=== PATIENT | female | born 1955 | race Caucasian/White ===

== ENCOUNTER → 2021-11-26 12:07 | Outpatient (CLI) | payer MEDICARE, SELFPAY ==
--- NOTE | ~2021-11-26 | MM_ITS ---
EXAMINATION: MM screening erica BI w dorita HISTORY: Screening TECHNIQUE: Craniocaudal and mediolateral oblique 3-D tomosynthesis images were obtained and synthetic 2-D images were generated. CAD analysis was submitted and interpreted. COMPARISON: Comparison to multiple prior studies sequentially, with oldest reviewed study dated 05/27. BREAST PARENCHYMAL COMPOSITION: Breast composed of scattered areas of fibroglandular density. FINDINGS: There is no evidence of suspicious mass, calcification, or architectural distortion to sugg est malignancy in either breast. There has been no suspicious interval change. IMPRESSION: 1. No mammographic evidence of malignancy. 2. Recommend routine screening mammography in one year. BI-RADS Category 1: Negative Reviewed, dictated and finalized at location A. RBOAT MASTER
--- NOTE | ~2021-11-26 | DEXA_ITS ---
Bone Density Report Name: GERTRUDE KAHN Age: 66 Sex: Female Ethnicity: White Date of : 1955 Indication: postmenopausal; screening for osteoporosis; hysterectomy; Referring Provider: QUE SANDERS Study: Bone densitometry was performed. Exam Date: November 26, 2021 Accession number: [id number] Bone Density: Region BMD T-score Z-score Classification AP Spine (L1-L4) 1.046 0.0 1.8 Normal Femoral Neck (Left) 0.701 -1.3 0.2 Osteopenia Total Hip (Left) 0.954 0.1 1.4 Normal Femoral Neck (Right) 0.745 -0.9 0.6 Normal Total Hip (Right) 0.954 0.1 1.4 Normal Total Hip Mean 0.954 0.1 1.4 Normal World Health Organization criteria for BMD impression classify patients as: Normal (T-score at or above -1.0), Osteopenia (T-score between -1.0 and -2.5), or Osteoporosis (T-score at or below -2.5). 10-year Fracture Risk(1): Major Osteoporotic Fracture 8.6% Hip Fracture 0.8% Reported Risk Factors: [place] (), Neck BMD=0.701, BMI=27.6 (1) FRAX(R) Version 3.08. Fracture probability calculated for an untreated patient. Fracture probability may be lower if the patient has received treatment. Clinical Information Provided by Patient: Has the following medical conditions: Hysterectomy Patient maximum height was 62.8 Menopause Age: 36 No regular weight bearing exercise Does not regularly consume dairy products Drinks caffeinated beverages Onset of menses at age 15 Number of children 0 Missed period for more than 6 months in a row Impression: The patient has low bone mass, based on the Left Femoral Neck T-score. The patient has an estimated ten-year risk of hip fracture of 0.8% and an estimated ten-year risk of major fracture of 8.6%, based on the WHO FRAX algorithm. Discussion: BONE DENSITY IS LOW AT ONE OR MORE SKELETAL SITES. This patient's lowest T-score is low at one or more skeletal sites. It meets the World Health Organization's (WHO) criteria for ?low bone mass? (T-score between -1.0 and -2.5). The patient's 10-year risk of fracture as calculated by FRAX is less than the threshold where pharmacological therapy is recommended by the National Osteoporosis Foundation (NOF). However, all treatment decisions require clinical judgment and consideration of individual patient factors, including patient preferences, comorbidities, previous drug use, risk factors not captured in the FRAX model (e.g., frailty, falls, vitamin D deficiency, increased bone turnover, interval significant decline in bone density) and possible under or overestimation of fracture risk by FRAX. The patient should follow a healthful lifestyle (good nutrition with adequate calcium and vitamin D, and appropriate weight-bearing exercise). Follow-Up: Consider repeating this study in 2 to 3 years to reassess this patient's status,
== END ==
PROVIDERS: PCP Family Medicine; Visit Provider Family Medicine
DX: Z12.31 Encounter for screening mammogram for malignant neoplasm of breast (principal); Z78.0 Asymptomatic menopausal state; M85.852 Other specified disorders of bone density and structure, left thigh
CPT/HCPCS: 77063; 77067; 77080

== ENCOUNTER 2022-02-25 00:29 | Day surgery (SDC) | payer MEDICARE, SELFPAY ==
[2022-02-14 10:01] VITALS: BMI 28.2
--- NOTE | 2022-02-24 12:54 | P.PNAN_ITS ---
Anes - Initial Pre Proc Eval Procedure: Operation Date: 02/25/22 12:30 Proposed Procedures p Screening Colonoscopy - Robby Martinez MD Date/Time: 02/24/22 12:54 Surgeon: Robby Martinez MD Pre Op Diagnosis: neoplasm screening Patient Data Age: 66 Gender: F Height: 1.57 m Weight: 70 kg Allergies Allergy/AdvReac Type Severity Reaction Status Date / Time No Known Allergies Allergy Verified 02/25/22 11:19 Home Medications Medication Instructions Recorded Confirmed Type omeprazole 20 mg capsule,delayed 20 mg PO DAILY 08/20/20 02/25/22 History release loratadine [Claritin] 10 mg PO DAILY PRN 02/14/22 02/25/22 History Patient hx anesthesia problems: none Family hx anesthesia problems: none Results Review: All pre-operative results and documents have been reviewed as p art of the pre-operative evaluation. [facility]LY [facility] Past Medical History Medical History (Updated 02/24/22 @ 12:54 by Johnny Dunn DO) GERD (gastroesophageal reflux disease) MVP (mitral valve prolapse) Rectal fistula (~2007) Repaired Squamous cell skin cancer, face (~2013) Surgical History Surgical History History of hysterectomy (~1990) Status post left foot surgery Removal of calcification Family History Family History Father Hypertension Family history of lung cancer Mother Family history of malignant neoplasm of breast in first degree relative Social History Social History Smoking status: Never smoker Second hand tobacco smoke exposure: No Alcohol intake: current Alcohol use details: Occasional Substance use: never Substance use type: does not use Living arrangements: alone Gender identity (if verbalized by the patient): Female Spiritual care concerns: No Anes - Eval Final PreProcedure Day of Procedure 02/24/22 12:54 Patient weight: overweight Heart: regular rate and rhythm Lungs: clear to auscultation and normal air movement Airway: Mallampati scale class II Neurological: alert and oriented Last oral intake: >/= 8 hours ASA classification: II Emergent: no Anesthetic plan: proceed Anesthesia type and monitoring: general GIVS and standard monitoring Results Review: All pre-operative results and documents have been reviewed as part of the pre-operative evaluation. Informed Consent: The patient's anesthetic plan and its attendant risks and benefits were discussed with the patient/family/POA. Questions were solicited and answers provided to the satisfaction of the patient/family/POA.
[2022-02-25 11:27] VITALS: BP 133/78; PULSE 93; RESP 18; TEMP 36.8; O2SAT 98
[2022-02-25] MEDS: LACTATED RINGERS 1,000 ML 150 ML IV CONT (11:46)
--- NOTE | 2022-02-25 11:59 | P.CONGI_ITS ---
Assessment and Plan Assessment and plan (1) Colon cancer screening: Code(s): Z12.11 - Encounter for screening for malignant neoplasm of colon Status: Acute GI Consult Note Consult date/time: 02/25/22 11:59 HPI: Milly Jama is a 66 year old female Presents for screening colonoscopy. Patient's current weight appetite and bowel movements are normal. She denies abdominal pain. She has had no bleeding. Patient's last colonoscopy 9 years ago was unremarkable. Patient presents today for follow-up exam. She reports many years ago had benign colon polyp removed. Her family history is noncontributory. Review of Systems Review of Systems: All systems reviewed & are unremarkable except as noted in HPI and below PMFSH Past Medical History Medical History (Updated 02/24/22 @ 12:54 by Johnny Dunn DO) GERD (gastroesophageal reflux disease) MVP (mitral valve prolapse) Rectal fistula (~2007) Repaired Squamous cell skin cancer, face (~2013) Surgical History Surgical History History of hysterectomy (~1990) Status post left foot surgery Removal of calcification Family History Family History Father Hypertension Family history of lung cancer Mother Family history of malignant neoplasm of breast in first degree relative Social History Social History Smoking status: Never smoker Second hand tobacco smoke exposure: No Alcohol intake: current Alcohol use details: Occasional Substance use: never Substance use type: does not use Living arrangements: alone Gender identity (if verbalized by the patient): Female Spiritual care concerns: No Meds Home Medications and Allergies Home Medications Medication Instructions Recorded Confirmed Type omeprazole 20 mg capsule,delayed 20 mg PO DAILY 08/20/20 02/25/22 History release loratadine [Claritin] 10 mg PO DAILY PRN 02/14/22 02/25/22 History Allergies Allergy/AdvReac Type Severity Reaction Status Date / Time No Known Allergies Allergy Verified 02/25/22 11:19 Vital Signs Vital Signs - 24 hr 02/25/22 11:27 Temperature 98.3 F Pulse Rate 93 Respiratory Rate 18 Blood Pressure 133/78 Pulse Oximetry 98 Exam Narrative: Physical exam reveals patient to be alert. Vital signs stable. HEENT exam is unremarkable. Patient is anicteric. Lungs are clear to auscultation and percussion. Heart is without murmur or extra sounds. Abdominal exam bowel sounds are present soft nontender with no he patosplenomegaly. Digital external rectal exam is normal.
[2022-02-25 13:17] VITALS: BP 115/67; PULSE 85; RESP 18; O2SAT 98
[2022-02-25 13:27] VITALS: BP 109/59; PULSE 86; RESP 18; O2SAT 99
[2022-02-25 13:37] VITALS: BP 124/66; PULSE 78; RESP 20; O2SAT 99
== END 2022-02-25 13:44 | disposition home or self-care (01) ==
PROVIDERS: PCP Family Medicine; Visit Provider Internal Medicine Gastroenterology
PROC: 0DJD8ZZ Inspection of Lower Intestinal Tract, Via Natural or Artificial Opening Endoscopic (ICD-10-PCS; CPT 45378; principal; 2022-02-25 12:30)
DX: Z12.11 Encounter for screening for malignant neoplasm of colon (principal); K57.30 Diverticulosis of large intestine without perforation or abscess without bleeding; K64.8 Other hemorrhoids; K21.9 Gastro-esophageal reflux disease without esophagitis; I34.1 Nonrheumatic mitral (valve) prolapse
CPT/HCPCS: G0121; J2704; J7120

== ENCOUNTER 2025-01-25 07:41 | Outpatient (CLI) | payer MEDICARE, SELFPAY ==
--- NOTE | ~2025-01-25 | MMUS_ITS ---
EXAMINATION: US breast biopsy LT w image, MM post biopsy diagnostic LT DATE: 01/25/2025 10:30 (accession [id number]), 01/25/2025 10:18 (accession [id number]) INDICATION: 69-year-old woman with left breast asymmetry presents for ultrasound-guided breast biopsy . BREAST PARENCHYMAL COMPOSITION:The breast is heterogeneously dense, which may obscure small masses. TECHNIQUE: The procedure including the risks, benefits, and alternatives was discussed with the patie nt. Risks discussed included bleeding and infection. The patient understood the risks and agreed to proceed. The skin overlying the upper outer quadrant of the left breast was prepped and draped in usual steril e fashion. Anesthetic was administered with 1% lidocaine subcutaneously. Limited ultrasound examination of the left breast was then again performed. At the 2:00 position of the left breast approximately 6 cm from the nipple is a shadowing focus of de creased echogenicity corresponding to the area of imaging concern. A 13G introducer was placed using ultrasound guidance into the abnormality at the 2:00 position of th e left breast, and the inner needle removed. A 14-gauge biopsy device was then used to obtain 4 biopsy specimens under continuous sonographic guid ance. The biopsy device was then removed, and through the introducer a BUTTERFLY marker was placed. The entry site was cleaned and dressed with Steri-Strips. There were no immediate complications. Post biopsy mammography was then performed in both the CC and MLO positions demonstrating the butterf ly microclip in the upper outer quadrant of the left breast without a significant perilesional hemato ma. IMPRESSION: 1. Technically successful ultrasound-guided core biopsy of a markedly suspicious lesion within the u pper outer quadrant of the left breast, as detailed above. Pathology pending Reviewed, dictated and finalized at location A. IMPRESSION: 1. Technically successful ultrasound-guided core biopsy of a markedly suspicio us lesion within the upper outer quadrant of the left breast, as detailed above . Pathology pending
--- OUTSIDE RECORDS SUMMARY | 2025-01-25 07:45 | XMS_ITS | Clinical Summary ---
Author Organization [facility] Address [facility] [place] [address] Care Team Providers Care Fire Engineer Name Role Phone Que Sanders MD Primary Care Provider [phone] Encounters Date Type Department Care Team Description 12/16/2024 1:48 PM AIR OPERATIONS MANAGER - 12/16/2024 11:59 PM AIR OPERATIONS MANAGER Hospital Encounter [facility] Mammography [address] [place], [place] [id number] Que Sanders MD Discharge Disposition: Home or Self Care (Routine Discharge) 12/16/2024 Travel from Last 3 Months Family History Medical History Relation Comments Breast Cancer Mother Relation Status Comments Mother Social History Tobacco Use Types Packs/Day Years Used Date Smoking Tobacco: Never Assessed Comments Unknown Sex and Gender Information Value Date Recorded Sex Assigned at Female 12/02/2024 11:30 AM AIR OPERATIONS MANAGER Legal Sex Female 7:53 PM CDT Gender Identity Not on file Sexual Orientation Not on file Plan of Treatment Health Maintenance Due Date Last Done Comments Colorectal Cancer Screening Colonoscopy (10 Years) 1955 Hepatitis C 1974 Annual Medicare Wellness Visit 2021 Mammogram Screening 12/16/2026 12/16/2024, DTaP, Tdap and Td Vaccines (2 - Td or Tdap) 06/25/2030 06/25/2020 Zoster Vaccines Completed 04/01/2022, 12/12/2021 Pneumococcal Vaccine: 65+ Years Completed 09/01/2022 RSV Immunization or 60+ Years Completed 10/05/2023 COVID-19 Vaccine Completed 08/06/2024, , 08/12/2022, Additional history exists Influenza Adult Completed 09/12/2024, 08/25/2022 Dexa Scan (General) Completed 10/11/2024 Meningococcal B Vaccine Aged Out No l onger eligible based on patient's age to complete this topic Meningococcal Vaccine Aged Out No jolly олег eligible based on patient's age to complete this topic RSV Immunizations Under 20 Months Aged Out No longer eligible based on patient's age to complete this topic Procedures Procedure Name Priority Date/Time Associated Diagnosis Comments MG DIAG W JARET LT DIGI Routine 12/16/2024 3:41 PM AIR OPERATIONS MANAGER Abnormal mammogram US BREAST LT BIRAD LTD Routine 12/16/2024 3:06 PM AIR OPERATIONS MANAGER Abnormal mammogram BONE DENSITY/DEXA Routine 10/11/2024 1:1 9 PM AIR OPERATIONS MANAGER Asymptomatic menopausal state from Last 3 Months or Most Recently Relevant to Health Maintenance Results * MG DIAG W JARET LT DIGI (12/16/2024 3:41 PM AIR OPERATIONS MANAGER) Anatomical Region Laterality Modality Breast Left Mammography, Rad iographic Imaging 12/16/2024 3:13 PM AIR OPERATIONS MANAGER Impressions 12/16/2024 3:16 PM AIR OPERATIONS MANAGER ===== IMPRESSION: ===== 1. Biopsy of left breast lesion. Assessment: ACR BI-RADS 4 - SUSPICIOUS FINDING(S) - BIOPSY SHOULD BE CONSIDERED Recommendation: 1:Biopsy should be considered Left Comments: Findings discussed with the patient following completion of exam. Ordered By: QUE SANDERS Interpreted By: Darrell Lawson, 12/16/2024 3:13 PM Narrative 12/16/2024 3:16 PM AIR OPERATIONS MANAGER [facility] [address] [place] [address] EXAMINATION: Digital left diagnostic mammogram with 3-D tomography. Left breast ultrasound [id number] EXAM DATE/TIME: 12/16/2024 1:58 PM REASON FOR EXAM: abnormal mammogram COMPARISON: 10/11/2024. 11/26/2021 TECHNIQUE: Digital diagnostic mammography of the left breast was performed in addition to 3-D Tomosynthesis technique. This study was read with the assistance of a computer-aided detection system. Focused left breast ultrasound TISSUE DENSITY: There are scattered areas of fibroglandular density. Findings: Persistence of asymmetric tissue within the upper outer quadrant of the left breast with irregular spiculated margins. No malignant microcalcifications. Left breast ultrasound. Imaging at the 2:00 position of the left breast 6 cm from the nipple. There is shadowing irregular hypoechoic mass. Vertically oriented. Measures 3.4 x 7.2 x 3.5 mm. Suspicious for carcinoma. Biopsy suggested. us Que Sanders MD MAMMO Final Result * US BREAST LT BIRAD LTD (12/16/2024 3:06 PM AIR OPERATIONS MANAGER) Anatomical Region Laterality Modality Breast Left Ultrasound 12/16/2024 3:13 PM AIR OPERATIONS MANAGER Impressions 12/16/2024 3:16 PM AIR OPERATIONS MANAGER ===== IMPRESSION: ===== 1. Biopsy of left breast lesion. Assessment: ACR BI-RADS 4 - SUSPICIOUS FINDING(S) - BIOPSY SHOULD BE CONSIDERED Recommendation: 1:Biopsy should be considered Left Comments: Findings discussed with the patient following completion of exam. Ordered By: QUE SANDERS Interpreted By: Darrell Lawson, 12/16/2024 3:13 PM Narrative 12/16/2024 3:16 PM AIR OPERATIONS MANAGER [facility] [address] [place] [address] EXAMINATION: Digital left diagnostic mammogram with 3-D tomography. Left breast ultrasound [id number] EXAM DATE/TIME: 12/16/2024 1:58 PM REASON FOR EXAM: abnormal mammogram COMPARISON: 10/11/2024. 11/26/2021 TECHNIQUE: Digital diagnostic mammography of the left breast was performed in addition to 3-D Tomosynthesis technique. This study was read with the assistance of a computer-aided detection system. Focused left breast ultrasound TISSUE DENSITY: There are scattered areas of fibroglandular density. Findings: Persistence of asymmetric tissue within the upper outer quadrant of the left breast with irregular spiculated margins. No malignant microcalcifications. Left breast ultrasound. Imaging at the 2:00 position of the left breast 6 cm from the nipple. There is shadowing irregular hypoechoic mass. Vertically oriented. Measures 3.4 x 7.2 x 3.5 mm. Suspicious for carcinoma. Biopsy suggested. us Que Sanders MD ULTRASOUND Final Result * BONE DENSITY/DEXA (10/11/2024 1:19 PM AIR OPERATIONS MANAGER) Anatomical Region Laterality Modality Bone Bone Density 10/12/2024 5:42 AM AIR OPERATIONS MANAGER Impressions 10/12/2024 5:43 AM AIR OPERATIONS MANAGER IMPRESSION: WHO Classification: Normal RECOMMENDATIONS: All patients should ensure an adequate intake of dietary calcium and vitamin D. The NOF recommend adults under the age of 50 need 1000 mg of calcium and 400-800 IU of vitamin D daily. Effective therapy for the prevention and treatment of osteoporosis include bisphosphonates. Follow-up: People with diagnosed cases of osteoporosis or at high risk for fracture should have regular bone mineral density test. For patients eligible for Medicare, routine testing is allowed once every 2 years. Testing frequency can be increased to one year for patients who have rapidly progressing disease, those who are receiving or discontinuing medical therapy to restore bone mass, or have additional risk factors. Referred By: QUE SANDERS Interpreted By: Jacob Mchugh MD, 10/12/2024 5:42 AM Narrative 10/12/2024 5:43 AM AIR OPERATIONS MANAGER [facility] [address] [place] [address] EXAMINATION: BONE DENSITY/DEXA INDICATIONS: Asymptomatic menopausal state TECHNIQUE: DEXA bone mineral density evaluation was performed in the AP projection over the lumbar spine and both hips utilizing standard imaging techniques. ASSESSMENT: The BMD measured at the AP spine L1-L4 is 1.068 g/cm? with a T-score of 0.2. The BMD measured at the left femoral neck is 0.853 g/cm? with a T-score of 0.0. The BMD measured at the left hip is 1.051 g/cm? with a T-score of 0.9. The BMD measured at the right femoral neck is 0.802 g/cm? with a T-score of - 0.4. The BMD measured at the right hip is 1.035 g/cm? with a T-score of 0.8. FRAX 10-year fracture risk: Not reported as all T scores are at or above -1.0 Procedure Note Jacob Mchugh MD - 10/12/2024 [facility] [address] [place] [address] EXAMINATION: BONE DENSITY/DEXA INDICATIONS: Asymptomatic menopausal state TECHNIQUE: DEXA bone mineral density evaluation was performed in the APprojection over the lumbar spine and both hips utilizing standard imagingtechniques. ASSESSMENT: The BMD measured at the AP spine L1-L4 is 1.068 g/cm? with a T-score of0.2. The BMD measured at the left femoral neck is 0.853 g/cm? with a T-score of0.0. The BMD measured at the left hip is 1.051 g/cm? with a T-score of 0.9. The BMD measured at the right femoral neck is 0.802 g/cm? with a T-scoreof -0.4. The BMD measured at the right hip is 1.035 g/cm? with a T-score of 0.8. FRAX 10-year fracture risk: Not reported as all T scores are at or above -1.0 IMPRESSION: WHO Classification: Normal RECOMMENDATIONS: All patients should ensure an adequate intake of dietary calcium andvitamin D. The NOF recommend adults under the age of 50 need 1000 mg ofcalcium and 400-800 IU of vitamin D daily. Effective therapy for theprevention and treatment of osteoporosis include bisphosphonates. Follow-up: People with diagnosed cases of osteoporosis or at high risk for fractureshould have regular bone mineral density test. For patients eligible forMedicare, routine testing is allowed once every 2 years. Testing frequencycan be increased to one year for patients who have rapidly progressingdisease, those who are receiving or discontinuing medical therapy torestore bone mass, or have additional risk factors. Referred By: QUE SANDERS Interpreted By: Jacob Mchugh MD, 10/12/2024 5:42 AM Que Sanders MD DEXA Final Result from Last 3 Months or Most Recently Relevant to Health Maintenance Insurance [employer] Care Teams Fire Engineer Relationship Specialty Start Date End Date Que Sanders MD [address] [place], [place] [id number] PCP - General FAMILY PRACTICE 08/05/24
--- OUTSIDE RECORDS SUMMARY | 2025-01-25 07:45 | XMS_ITS | Clinical Summary ---
Author Organization [facility] Address [address] [place] [address] Care Team Providers Care Environmental Program Manager Name Role Phone Barbara Givens MD Primary Care Provider [phone] Source Comments [facility],non-owned Affiliates and Associated Physician Practices is amultiple site organization consisting of ambulatory clinics and hospital sitesin [place], [place], [place] and [place]. This disclosure is being madepursuant to the Care Everywhere program and may not contain all information available regarding this patient. Last updated 18.[facility] Medications Be aware that medications may not be up to date on this document. Always verify current medications with the patient. No known medications Active Problems Problem Noted Date Diagnosed Date Squamous cell carcinoma of skin of other parts o f face 01/09/2015 Family History Medical History Relation Name Comments Cancer Father lung; Status: D eceased Hypertension Father Relation Name Status Comments Father Social History Tobacco Use Types Packs/Day Years Used Date Smoking Tobacco: Never Smokeless Tobacco: Never Alcohol Use Standard Drinks/Week Comments Yes 4.2 (1 standard drink = 0.6 oz p ure alcohol) Sex and Gender Information Value Date Recorded Sex Assigned at Not on file Gender Identity Not on file Sexual Orientation Not on file Last Filed Vital Signs Vital Sign Reading Time Taken Comments Blood Pressure 131/82 02/13/2015 9:01 AM CDT Pulse 84 02/13/2015 9:01 AM CDT Temperature - - Respiratory Rate - - Oxygen Saturation 98% 02/13/2015 9:01 AM CDT Inhaled Oxygen Concentration - - Weight 70.3 kg (155 lb) 02/13/2015 7:28 AM CDT Height 157.5 cm (5' 2 ) 02/13/2015 7:28 AM CDT Body Mass Index 28.35 02/13/2015 7:28 AM CDT Plan of Treatment Health Maintenance Due Date Last Done Comments BONE DENSITY TESTING 1955 COLOGUARD (AGES 45-75) - COL ON CA SCREENING 1955 COLON MONITORING 1955 COLONOSCOPY - COLON CA SCREENING 1956 CT COLONOGRAPHY - COLON CA SCREENING 1955 Colorectal Cancer Screening 1955 FIT - COLON CA SCREENING 1955 FLEX SIG - COLON CA SCREENING 1955 LIPID TESTING 1955 MAMMOGRAM 1955 HEPATITIS C SCREENING 03/25/1974 DTAP/TDAP/TD VACCINES (1 - Tdap) 1975 PNEUMOCOCCAL VACCINE 50+ (1 of 1 - PCV) 2006 ZOSTER VACCINE (1 of 2) 2006 COVID-19 VACCINE (1 - 2023-2 5 season) 2024 INFLUENZA VACCINE (#1) 2024 DEPRESSION SCREENING 11/16/2024 Respiratory Syncytial Virus (RSV) Vaccine Pt: or over 60 yrs (1 - 1-dose 75+ series) 2031 HEPATITIS B VACCINE Aged Out No longe r eligible based on patient's age to complete this topic HIB VACCINE Aged Out No longer eligi ble based on patient's age to complete this topic HPV VACCINE Aged Out No longer eligi ble based on patient's age to complete this topic MENINGOCOCCAL (Group B) VACC INE SHARED DECISION-MAKING Aged Out No longer eligibl e based on patient's age to complete this topic MENINGOCOCCAL GROUPS A/C/Y/W VACCINE Aged Out No longer eligible b ased on patient's age to complete this topic Care Teams Environmental Program Manager Relationship Specialty Start Date End Date Barbara Givens MD [address] [place] [address] PCP - General 01/25/19
--- OUTSIDE RECORDS SUMMARY | 2025-01-25 07:45 | XMS_ITS | Clinical Summary ---
Author Organization [facility] Care Team Providers Care Apparatus Operator Name Role Phone Unavailable Primary Care Provider Unavailabl e Social History Tobacco Use Types Packs/Day Years Used Date Smoking Tobacco: Never Assessed Comments Unknown Sex and Gender Information Value Date Recorded Sex Assigned at Not on file Legal Sex Female 11:12 AM OPTION TRADER Gender Identity Not on file Sexual Orientation Not on file Plan of Treatment Health Maintenance Due Date Last Done Comments DEXA Bone Density 1955 Hepatitis C Virus (HCV) Screening 1955 TdaP Immunization 1955 Colonoscopy 2001 Colorectal Cancer Screening 2001 Cologuard 2006 Immunochemical Fecal Occult Blood 2006 Mammogram 2006 Pneumococcal Immunization (5 0+ years) (1 of 1 - PCV) 2006 Zoster Immunization (1 of 2) 2006 Influenza Immunization (#1) 2024 SARS-COV-2 Immunization (2 - season) 2024 09/20/2021 Respiratory Syncytial Virus (RSV) Immunization (Adult) (1 - 1-dose 75+ series) 2031 Hepatitis B Immunization Aged Out No longer eligible based on patient's age to complete this topic Meningococcal Immunization (ACWY) Aged Out No longer eligible based on patient's age to complete this topic Rotavirus Immunization Aged Out No lo nger eligible based on patient's age to complete this topic
--- OUTSIDE RECORDS SUMMARY | 2025-01-25 07:46 | XMS_ITS | Referral Summary ---
Author Organization [facility] Address [address] [place] [address] Care Team Providers Care Dependency Case Manager Name Role Phone Barbara Givens MD Primary Care Provider Source Comments [facility],non-owned Affiliates and Associated Physician Practices is amultiple site organization consisting of ambulatory clinics and hospital sitesin [place], [place], [place] and [place]. This disclosure is being madepursuant to the Care Everywhere program and may not contain all information available regarding this patient. Last updated 18.[facility] Medications Be aware that medications may not be up to date on this document. Always verify current medications with the patient. No known medications Active Problems Problem Noted Date Diagnosed Date Squamous cell carcinoma of skin of other parts o f face 01/09/2015 Social History Tobacco Use Types Packs/Day Years [...] 02/13/2015 7:28 AM CDT Plan of Treatment Not on file Care Teams Dependency Case Manager Relationship Specialty Start Date End Date Barbara Givens MD [address] [place] [address] PCP - General 01/25/19
--- OUTSIDE RECORDS SUMMARY | 2025-01-25 07:46 | XMS_ITS | Patient Health Summary ---
Author Organization [facility] [employer] Address [address] [place] [address] Care Team Providers Care Dry Room Operator Name Role Phone Barbara Givens MD Primary Care Provider [phone] Note from [facility],non-owned Affiliates and Associated Physician Practices is amultiple site organization consisting of ambulatory clinics and hospital sitesin [place], [place], [place] and [place]. This disclosure is being madepursuant to the Care Everywhere program and may not contain all information available regarding this patient. Last updated 18.[facility] [place] Medications Be aware that medications may not [...] Mass Index 28.35 02/13/2015 7:28 AM CDT Procedures * IA DESTROY PREMALIG LESION, 1ST LESION(Performed 02/28/2019) Performed for Actinic keratosis * IA DESTRUCT BENIGN LESION, 1-14(Performed 02/28/2019) Performed for Seborrheic keratoses, inflamed * DERMATOPATHOLOGY(Performed 01/01/2015) * DERMATOPATHOLOGY(Performed 01/10/2011) * DERMATOPATHOLOGY(Performed 12/10/2010) Results * IA DESTROY PREMALIG LESION, 1ST LESION (02/28/2019 8:56 PM CDT) Narrative Mehreen Chavez MD - 02/28/2019 8:56 PM CDT Ileana Olivas MD 01/25/2019 4:36 PM Diagnosis and treatment options discussed for AKs. Verbal consent obtained. Cryotherapy (Liquid Nitrogen) performed to 1 lesion on L posterior neck for 6-7 seconds each. Number of cycles: 1. Wound care reviewed and post-cryotherapy handout given. Ileana Olivas MD [facility] Dermatology Resident, PGY-4 Mehreen Chavez MD PROCEDURE/MINOR STACK RGICAL ORDERABLES * IA DESTRUCT BENIGN LESION, 1-14 (02/28/2019 8:56 PM CDT) Narrative Mehreen Chavez MD - 02/28/2019 8:56 PM CDT Ileana Olivas MD 01/25/2019 4:36 PM Diagnosis and treatment options discussed for ISK. Verbal consent obtained. Cryotherapy (Liquid Nitrogen) performed to 4 lesions on R upper back for 10 seconds each. Number of cycles: 1. Wound care reviewed and post-cryotherapy handout given. Ileana Olivas MD [facility] Dermatology Resident, PGY-4 Mehreen Chavez MD PROCEDURE/MINOR STACK RGICAL ORDERABLES * PATHOLOGY TISSUE FOR DERMATOLOGY (01/01/2015 12:00 AM WASTE SPECIALIST) Only the most recent of3 resultswithin the time period is included. Result CASE: [id number] PATIENT: GERTRUDE KAHN PATHOLOGIC DIAGNOSIS: Over right jaw: SQUAMOUS CELL CARCINOMA, ACANTHOLYTIC TYPE CLINICAL DATA: Materials from: [place] [address] Received from [facility] ([facility]) are 1 slide(s) labeled [id number]. Squamous cell carcinoma, well differentiated, present at margin. All slides returned. Appointment Date: 01/09/2015. Any additional sections, special stains, or immunohistochemical stains performed by our laboratory will be kept here on file. MICROSCOPIC DESCRIPTION: Sections show skin with irregularly shaped nests of keratinocytes with evidence of cornification. In some nests, there is loss of cohesion between the neoplastic cells, as well as individual dyskeratotic cells that lack intercellular bridges. Electronically signed out by Dianelys Nicholas M.D., PhD. 01/01/2015 2:05:04PM [facility] DERMATOLOGY LAB Comment: Performed at: Dermatopathology Laboratory [facility] Department of Dermatology [address] [place] [address] [place] [address] Phone number: [phone] FAX: [phone] 01/01/2015 01/01/2015 Javed Gallardo MD LAB - PATHOLOGY/CYTO LOGY ORDERABLES [facility] DERMATOLOGY LAB [address] [place] [address]. [address] Floor Lab [address] [phone] Care Teams Dry Room Operator Relationship Specialty Start Date End Date Barbara Givens MD [address] [place] [address] PCP - General 01/25/19
== END 2025-01-25 07:42 | disposition home or self-care (01) ==
LOC: ANHIMG 07:42
PROVIDERS: PCP Family Medicine; Visit Provider Surgery
DX: C50.412 Malignant neoplasm of upper-outer quadrant of left female breast (principal); N63.21 Unspecified lump in the left breast, upper outer quadrant; Z12.31 Encounter for screening mammogram for malignant neoplasm of breast
CPT/HCPCS: 19083; 77065; 88305; 88342; 88360; A4648

== ENCOUNTER 2025-02-14 12:24 | Outpatient (CLI) | payer MEDICARE, SELFPAY ==
--- NOTE | ~2025-02-14 | MR_ITS ---
MR breast BI wo/w con 02/15/2025 7:33 CDT INDICATION: Malignant neoplasm of the left breast. Invasive lobular carcinoma. TECHNIQUE: MRI of the breasts perform using standard protocol pre-and post IV contrast with the follo wing sequences: Axial T2 STIR, axial T1, axial vibrant T1 with fat suppression precontrast and multip hasic postcontrast. 15 cc ProHance administered intravenously. COMPARISON: Ultrasound dated 01/25/2025, outside mammogram and ultrasound dated 12/16/2024 FINDINGS: Breast density: Scattered areas of fibroglandular tissue. Right breast: There are no abnormalities on the precontrast sequences. There is mild background paren chymal enhancement. No enhancing lesions following contrast administration. There is a small intrama mmary lymph node in the upper outer quadrant of the right breast at 11:00, posterior third measuring 6 mm. No axillary lymphadenopathy. No internal mammary lymphadenopathy. No evidence of signal abnorma lities in the axillary or internal mammary node distributions. LEFT BREAST: No signal abnormalities on precontrast sequences. There is mild background parenchymal enhancement. In the upper inner quadrant of the left breast there is an area of nonmass-like enhancem ent with medium plateau enhancement characteristics. In the upper outer quadrant of the left breast t here is a 3 mm foci of contrast enhancement, too small to evaluate for enhancement characteristics. N o evidence of signal abnormalities in the axillary or internal mammary node distributions.] IMPRESSION: 1: Right breast: Negative. No evidence of malignancy. BI-RADS category 1. Recommend annual mammo graphy follow-up. 2: Left breast: Focal nonmass-like enhancement upper inner quadrant of the left breast with medium p lateau enhancement characteristics corresponding to the area of previous positive biopsy for invasive lobular carcinoma. There are nearby areas of nonmass-like enhancement to small to characterize, poss ibly background enhancement, although additional sites of malignancy are not excluded. Consider corre lation with second look ultrasound. BI-RADS category 6- Known biopsy proven malignancy: Appropriate a ction should be taken. Reviewed, dictated and finalized at location A. IMPRESSION: 1: Right breast: Negative. No evidence of malignancy. BI-RADS category 1. Recommend annual mammography follow-up. 2: Left breast: Focal nonmass-like enhancement upper inner quadrant of the lef t breast with medium plateau enhancement characteristics corresponding to the a eve of previous positive biopsy for invasive lobular carcinoma. There are nearb y areas of nonmass-like enhancement to small to characterize, possibly backgrou nd enhancement, although additional sites of malignancy are not excluded. Consi larry correlation with second look ultrasound. BI-RADS category 6- Known biopsy p roven malignancy: Appropriate action should be taken.
--- OUTSIDE RECORDS SUMMARY | 2025-02-14 13:21 | XMS_ITS | Clinical Summary ---
Author Organization [facility] Address [address] [place] [address] Care Team Providers Care Public Speaking Professor Name Role Phone Que Sanders MD Primary Care Provider [phone] Encounters Date Type Department Care Team Description 12/16/2024 1:48 PM SPICE ROOM WORKER - 12/16/2024 11:59 PM SPICE ROOM WORKER Hospital Encounter [facility] Mammography [address] [place], [place] [id number] Que Sanders MD Discharge Disposition: Home or Self Care (Routine Discharge) 12/16/2024 Travel from Last 3 Months Family History Medical History Relation Comments Breast Cancer Mother Relation Status Comments Mother Social History Tobacco Use Types Packs/Day Years Used Date Smoking Tobacco: Never Assessed Comments Unknown Sex and Gender Information Value Date Recorded Sex Assigned at Female 12/02/2024 11:30 AM SPICE ROOM WORKER Legal Sex Female 7:53 PM CDT Gender Identity Not on file Sexual Orientation Not on file Plan of Treatment Health Maintenance Due Date Last Done Comments Colorectal Cancer Screening Colonoscopy (10 Years) 1955 Hepatitis C 1974 Annual Medicare Wellness Visit 2021 COVID-19 Vaccine ( season) 2025 08/06/2024, 09/09/2023, 08/12/2022, Additional history exists Mammogram Screening 12/16/2026 12/16/2024, DTaP, Tdap and Td Vaccines (2 - Td or Tdap) 06/25/2030 06/25/2020 Zoster Vaccines Completed 04/01/2022, 12/12/2021 Pneumococcal Vaccine: 65+ Years Completed 09/01/2022 RSV Immunization or 60+ Years Completed 10/05/2023 Influenza Adult Completed 09/12/2024, 08/25/2022 Dexa Scan [...] JARET LT DIGI Routine 12/16/2024 3:41 PM SPICE ROOM WORKER Abnormal mammogram US BREAST LT BIRAD LTD Routine 12/16/2024 3:06 PM SPICE ROOM WORKER Abnormal mammogram BONE DENSITY/DEXA Routine 10/11/2024 1:1 9 PM SPICE ROOM WORKER Asymptomatic menopausal state from Last 3 Months or Most Recently Relevant to Health Maintenance Results * MG DIAG W JARET LT DIGI (12/16/2024 3:41 PM SPICE ROOM WORKER) Anatomical Region Laterality Modality Breast Left Mammography, Rad iographic Imaging 12/16/2024 3:13 PM SPICE ROOM WORKER Impressions 12/16/2024 3:16 PM SPICE ROOM WORKER ===== IMPRESSION: ===== 1. Biopsy of left breast lesion. Assessment: ACR BI-RADS 4 - SUSPICIOUS FINDING(S) - BIOPSY SHOULD BE CONSIDERED Recommendation: 1:Biopsy should be considered Left Comments: Findings discussed with the patient following completion of exam. Ordered By: QUE SANDERS Interpreted By: Darrell Lawson, 12/16/2024 3:13 PM Narrative 12/16/2024 3:16 PM SPICE ROOM WORKER [facility] [address] [place] [address] EXAMINATION: Digital left diagnostic mammogram with 3-D tomography. Left breast ultrasound [id number] EXAM DATE/TIME: 12/16/2024 1:58 PM REASON FOR [...] MAMMO Final Result * [facility] (12/16/2024 3:06 PM SPICE ROOM WORKER) Anatomical Region Laterality Modality Breast Left Ultrasound 12/16/2024 3:13 PM SPICE ROOM WORKER Impressions 12/16/2024 3:16 PM SPICE ROOM WORKER ===== IMPRESSION: ===== 1. Biopsy of left breast lesion. Assessment: ACR BI-RADS 4 - SUSPICIOUS FINDING(S) - BIOPSY SHOULD BE CONSIDERED Recommendation: 1:Biopsy should be considered Left Comments: Findings discussed with the patient following completion of exam. Ordered By: QUE SANDERS Interpreted By: Darrell Lawson, 12/16/2024 3:13 PM Narrative 12/16/2024 3:16 PM SPICE ROOM WORKER [facility] [address] [place] [address] EXAMINATION: Digital left diagnostic mammogram with 3-D tomography. Left breast ultrasound [id number] EXAM DATE/TIME: 12/16/2024 1:58 PM REASON FOR [...] Result * BONE DENSITY/DEXA (10/11/2024 1:19 PM SPICE ROOM WORKER) Anatomical Region Laterality Modality Bone Bone Density 10/12/2024 5:42 AM SPICE ROOM WORKER Impressions 10/12/2024 5:43 AM SPICE ROOM WORKER IMPRESSION: WHO Classification: Normal RECOMMENDATIONS: All patients [...] 10/12/2024 5:42 AM Narrative 10/12/2024 5:43 [place] [address] EXAMINATION: BONE DENSITY/DEXA INDICATIONS: Asymptomatic menopausal state [...] Procedure Note Jacob Mchugh MD - 10/12/2024 [facility] [address] [place], [place] [id number] EXAMINATION: BONE DENSITY/DEXA INDICATIONS: Asymptomatic menopausal state [...] to Health Maintenance Insurance [employer] Care Teams Public Speaking Professor Relationship Specialty Start Date End Date Que Sanders MD [address] [place], [place] [id number] PCP - General FAMILY PRACTICE 08/05/24
--- OUTSIDE RECORDS SUMMARY | 2025-02-14 13:21 | XMS_ITS | Clinical Summary ---
Author Organization [facility] Address [address] [place] [address] Care Team Providers Care Veterinary Anatomist Name Role Phone Unavailable Primary Care Provider Unavailabl e Allergies No known active allergies Medications omeprazole magnesium (PRILOSEC ORAL) Take by mouth. Active loratadine (CLARITIN ORAL) Take by mouth. Active Active Problems No known active problems Encounters Date Type Department Care Team Description 02/08/2025 8:30 AM CDT Office Visit [facility] Oncology and Hematology - [place] [address] [facility] [address] [place] [address] Guerrero Hutson MD Malignant neoplasm of upper-outer quadrant of left breast in female, estrogen receptor positive (CMS/HCC) (Primary Dx) from Last 3 Months Family History Medical History Relation Name Comments Lung Cancer Father Breast Cancer Mother No Known Problems Sister Relation Name Status Comments Father Mother Sister Alive Social History Tobacco Use Types Packs/Day Years Used Date Smoking Tobacco: Never Smokeless Tobacco: Never Tobacco Cessation:Counseling Given: Not Answered Alcohol Use Standard Drinks/Week Comments Yes 0 (1 standard drink = 0.6 oz pur e alcohol) Occasionally Comments Unknown Sex and Gender Information Value Date Recorded Sex Assigned at Not on file Legal Sex Female 4:14 PM CDT Gender Identity Not on file Sexual Orientation Not on file Last Filed Vital Signs Vital Sign Reading Time Taken Comments Blood Pressure 150/84 02/08/2025 8:44 AM CDT Patient is anxious Pulse 69 02/08/2025 8:42 AM CDT Temperature 36.9 C (98.5 F) 02/08/2025 8:42 AM CDT Respiratory Rate 16 02/08/2025 8:42 AM CDT Oxygen Saturation 98% 02/08/2025 8:4 2 AM CDT Inhaled Oxygen Concentration - - Weight 72 kg (158 lb 12.8 oz) 02/08/2025 8:42 AM CDT Height 157.5 cm (5' 2 ) 02/08/2025 8:42 AM CDT Body Mass Index 29.04 02/08/2025 8:42 AM CDT Plan of Treatment Upcoming Encounters Date Type Department Care Team (Late st Contact Info) Description 02/20/2025 4:15 PM CDT Telephone Check Up [facility] Oncology and Hematology - [place] [address] [facility] [address] [place] [address] Guerrero Hutson MD [address] [facility] [address] [place] [address] Health Maintenance Due Date Last Done Comments Pre-Diabetes and Diabetes Screening 1955 DTAP/TDAP/TD VACCINES (1 - Tdap) 1975 COLORECTAL SCREENING 2001 Colorectal Cancer Screening 2001 FIT-DNA Q 3 years 2001 FIT/FOBT Q 1 year 2001 Flex Sig/CT Colonography Q 5 years 2001 PNEUMOCOCCAL VACCINE 50+ YEA RS (1 of 1 - PCV) 2006 ZOSTER VACCINE (1 of 2) 2006 INFLUENZA VACCINE (#1) 2024 [place] Prev entative Visit/Annual Wellness Visit 11/16/2024 BREAST CANCER SCREENING 12/16/2025 12/16/19 25, 12/16/2024, 10/11/2024 RSV VACCINE (60+ or ) (1 - 1-dose 75+ series) 2031 OSTEOPOROSIS SCREENING Completed 10/11/2024, 2023 Insurance [employer] PPO [facility]
--- OUTSIDE RECORDS SUMMARY | 2025-02-14 13:21 | XMS_ITS | Clinical Summary ---
Author Organization [facility] [employer] Address [address] [place] [address] Care Team Providers Care Solar Mechanical Engineer Name Role Phone Barbara Givens MD Primary Care Provider [phone] Source Comments [facility],non-owned Affiliates and Associated Physician Practices is amultiple site organization consisting of ambulatory clinics and hospital sitesin [place], [place], [place] and [place]. This disclosure is being madepursuant to the Care Everywhere program and may not contain all information available regarding this patient. Last updated 18.[facility] Medications Be aware that medications may not [...] INFLUENZA VACCINE (#1) 2024 DEPRESSION SCREENING 11/16/2024 MEDICARE AWV CALENDAR YEAR 2024 Respiratory Syncytial Virus (RSV) Vaccine Pt: or [...] age to complete this topic Care Teams Solar Mechanical Engineer Relationship Specialty Start Date End Date Barbara Givens MD [address] [place] [address] PCP - General 01/25/19
--- OUTSIDE RECORDS SUMMARY | 2025-02-14 13:21 | XMS_ITS | Clinical Summary ---
Author Organization [facility] Care Team Providers Care Hotel Supplies Salesperson Name Role Phone Unavailable Primary Care Provider Unavailabl e Social History Tobacco Use Types Packs/Day Years Used Date Smoking Tobacco: Never Assessed Comments Unknown Sex and Gender Information Value Date Recorded Sex Assigned at Not on file Legal Sex Female 11:12 AM SLITTER CREASER SLOTTER OPERATOR Gender Identity Not on file Sexual Orientation [...]
== END 2025-02-14 12:25 | disposition home or self-care (01) ==
PROVIDERS: PCP Family Medicine; Visit Provider Surgery
DX: C50.912 Malignant neoplasm of unspecified site of left female breast (principal)
CPT/HCPCS: 77049; A9579; C8908

== ENCOUNTER 2025-02-22 09:19 | Outpatient (CLI) | payer MEDICARE, SELFPAY ==
--- NOTE | 2025-02-22 09:34 | ECG_ITS ---
Test Date: 2025-02-22 09:49:52 Measurements Intervals [place] Rate: 66 P: -1 WI: 144 QRS: 45 QRSD: 80 T: 58 QT: 392 QTc: 413 Interpretive Statements SINUS RHYTHM LOW QRS VOLTAGE IN PRECORDIAL LEADS CANNOT R/O SEPTAL INFARCT, AGE INDETERMINATE BASELINE ARTIFACT- I, II, AVR ABNORMAL ECG No previous ECG available for comparison Electronically Signed On 02-22-2025 10:05:14 CDT by Loki Evans D.O.
--- OUTSIDE RECORDS SUMMARY | 2025-02-22 10:21 | XMS_ITS | Clinical Summary ---
Author Organization [facility] Care Team Providers Care Oil Burner Mechanic Name Role Phone Unavailable Primary Care Provider Unavailabl e Social History Tobacco Use Types Packs/Day Years Used Date Smoking Tobacco: Never Assessed Comments Unknown Sex and Gender Information Value Date Recorded Sex Assigned at Not on file Legal Sex Female 11:12 AM NITROCELLULOSE MAKER Gender Identity Not on file Sexual Orientation [...]
--- OUTSIDE RECORDS SUMMARY | 2025-02-22 10:21 | XMS_ITS | Encounter Summary ---
Author Organization [facility] [employer] [facility] Address [address] [place] [address] Care Team Providers Care Senior Living Sales Counselor Name Role Phone Unavailable Primary Care Provider Unavailabl e Encounter Details Date Type Department Care Team (Late st Contact Info) Description 02/20/2025 4:15 PM CDT Telephone Check Up [facility] Oncology and Hematology - [place] [address] [facility] [address] [place] [address] Guerrero Hutson MD [address] [facility] [address] [place] [address] Social History Tobacco Use Types Packs/Day Years Used Date Smoking Tobacco: Never Smokeless Tobacco: Never Alcohol Use Standard Drinks/Week Comments Yes 0 (1 standard drink = 0.6 oz pur e alcohol) Occasionally Comments Unknown Sex and Gender Information Value Date Recorded Sex Assigned at Not on file Legal Sex Female 4:14 PM CDT Gender Identity Not on file Sexual Orientation Not on file documented as of this encounter Progress Notes * Guerrero Hutson MD - 02/20/2025 5:06 PM CDT HEMATOLOGY / ONCOLOGY PROGRESS NOTE Patient Identification: Name: Milly Rivero Age: 69 y.o. Sex: female : 1955 DIAGNOSIS T1 N0 M0 stage IA invasive lobular carcinoma of the left breast status post ultrasound-guided biopsy of the left breast done on January 25 that showed invasive lobular carcinoma ER DE positive HER2/neu3+ positive with Ki-67 of 12%. CURRENT TREATMENT Expectant TREATMENT HISTORY SUBJECTIVE This is a phone visit with patient. She has no new complaint since her last visit. Review of system Constitutional: Patient did not mention fevers, sweats, fatigue, malaise, weight loss HEENT: Patient did not mention sinus congestion, hearing or vision problems Respiratory: Patient did not mention cough, dyspnea, wheeze Cardiovascular: Patient did not mention chest pain, exertional chest pressure/discomfort, nausea, syncope, shortness of breath GI: Patient did not mention constipation, diarrhea, dsyphagia, reflux symptoms, vomiting, melena : Patient did not mention dysuria, frequency, incontinence, urgency Integumentary system: no lymphadenopathy, sweats, flushing Musculoskeletal: Patient not mention: myalgia, arthralgia Neurological: Patient did not mention blurry or disturbed vision, numbness/weakness, dizziness Skin: No lumps, bumps or rashes. Objective: Vital signs in last 24 hours: As per nursing note Exam: This is a phone visit [facility] Assessment: Plan: There are no active problems to display for this patient. T1 N0 M0 stage IA invasive lobular carcinoma of the left breast status post ultrasound-guided biopsy of the left breast done on January 25 that showed invasive lobular carcinoma ER DE positive HER2/neu3+ positive with Ki-67 of 12%. Bilateral breast MRI reviewed with the patient. Genetic testing was declined by the insurance. Patient is going to have bilateral mastectomy on March 01. I will see her back 3 weeks after the surgery and we will start chemotherapy with Taxol and Herceptin once recovered from the surgery followed by Herceptin maintenance for 1 year. She is also going to have port placement with the surgery. TOBACCO COUNSELING She is not a tobacco/nicotine user. 02/20/2025 Guerrero Hutson MD Patient's identity confirmed yes Patient gave verbal consent to have these services billed to their insurance and expressed understanding that co-insurance and deductible may apply: yes Patient was located at home. This encounter was completed via two-way synchronous audio only communication. Video technology available to provider, but patient not capable of, or doesn't consent to, use of video. Time spent in discussion with patient: 25 minutes. documented in this encounter Plan of Treatment Upcoming Encounters Date Type Department Care Team (Late st Contact Info) Description 03/23/2025 10:00 AM CDT Office Visit [facility] Oncology and Hematology - [place] [address] [facility] [address] [place] [address] Guerrero Hutson MD [address] [facility] [address] [place] [address] documented as of this encounter Visit Diagnoses Not on filedocumented in this encounter
--- OUTSIDE RECORDS SUMMARY | 2025-02-22 10:21 | XMS_ITS | Clinical Summary ---
Author Organization [facility] [employer] Address [address] [place] [address] Care Team Providers Care Vegetable Loader Name Role Phone Barbara Givens MD Primary Care Provider [phone] Source Comments [facility] [employer],non-owned Affiliates and Associated Physician Practices is amultiple site organization consisting of ambulatory clinics and hospital sitesin [place], [place], [place] and [place]. This disclosure is being madepursuant to the Care Everywhere program and may not contain all information available regarding this patient. Last updated 18.[employer] Medications Be aware that medications may not [...] VACCINE (1 - 2023-2 5 season) 2024 DEPRESSION SCREENING 11/16/2024 MEDICARE AWV CALENDAR YEAR 2024 INFLUENZA VACCINE (Season Ended) 2025 Respiratory Syncytial Virus (RSV) Vaccine Pt: or [...] age to complete this topic Care Teams Vegetable Loader Relationship Specialty Start Date End Date Barbara Givens MD [address] [place] [address] PCP - General 01/25/19
--- OUTSIDE RECORDS SUMMARY | 2025-02-22 10:21 | XMS_ITS | Clinical Summary ---
Author Organization [facility] Address [address] [place] [address] Care Team Providers Care Soils Technician Name Role Phone Que Sanders MD Primary Care Provider [phone] Encounters Date Type Department Care Team Description 12/16/2024 1:48 PM DIRECTOR VISUAL - 12/16/2024 11:59 PM DIRECTOR VISUAL Hospital Encounter [facility] Mammography [address] [place], [place] [id number] Que Sanders MD Discharge Disposition: Home or Self Care (Routine Discharge) 12/16/2024 Travel from Last 3 Months Family History Medical History Relation Comments Breast Cancer Mother Relation Status Comments Mother Social History Tobacco Use Types Packs/Day Years Used Date Smoking Tobacco: Never Assessed Comments Unknown Sex and Gender Information Value Date Recorded Sex Assigned at Female 12/02/2024 11:30 AM DIRECTOR VISUAL Legal Sex Female 7:53 PM CDT Gender [...] RSV Immunization or 60+ Years Completed 10/05/2023 Dexa Scan (General) Completed 10/11/2024 Meningococcal B [...] JARET LT DIGI Routine 12/16/2024 3:41 PM DIRECTOR VISUAL Abnormal mammogram US BREAST LT BIRAD LTD Routine 12/16/2024 3:06 PM DIRECTOR VISUAL Abnormal mammogram BONE DENSITY/DEXA Routine 10/11/2024 1:1 9 PM DIRECTOR VISUAL Asymptomatic menopausal state from Last 3 Months or Most Recently Relevant to Health Maintenance Results * MG DIAG W JARET LT DIGI (12/16/2024 3:41 PM DIRECTOR VISUAL) Anatomical Region Laterality Modality Breast Left Mammography, Rad iographic Imaging 12/16/2024 3:13 PM DIRECTOR VISUAL Impressions 12/16/2024 3:16 PM DIRECTOR VISUAL ===== IMPRESSION: ===== 1. Biopsy of left breast lesion. Assessment: ACR BI-RADS 4 - SUSPICIOUS FINDING(S) - BIOPSY SHOULD BE CONSIDERED Recommendation: 1:Biopsy should be considered Left Comments: Findings discussed with the patient following completion of exam. Ordered By: QUE SANDERS Interpreted By: Darrell Lawson, 12/16/2024 3:13 PM Narrative 12/16/2024 3:16 PM DIRECTOR VISUAL [id number] [place] [address] EXAMINATION: Digital left diagnostic mammogram with 3-D tomography. Left breast ultrasound [id number] EXAM DATE/TIME: 12/16/2024 1:58 PM REASON FOR [...] BREAST LT BIRAD LTD (12/16/2024 3:06 PM DIRECTOR VISUAL) Anatomical Region Laterality Modality Breast Left Ultrasound 12/16/2024 3:13 PM DIRECTOR VISUAL Impressions 12/16/2024 3:16 PM DIRECTOR VISUAL ===== IMPRESSION: ===== 1. Biopsy of left breast lesion. Assessment: ACR BI-RADS 4 - SUSPICIOUS FINDING(S) - BIOPSY SHOULD BE CONSIDERED Recommendation: 1:Biopsy should be considered Left Comments: Findings discussed with the patient following completion of exam. Ordered By: QUE SANDERS Interpreted By: Darrell Lawson, 12/16/2024 3:13 PM Narrative 12/16/2024 3:16 PM DIRECTOR VISUAL [facility] [address] [place] [address] EXAMINATION: Digital left diagnostic mammogram with 3-D tomography. Left breast ultrasound [id number] EXAM DATE/TIME: 12/16/2024 1:58 PM REASON FOR [...] Result * BONE DENSITY/DEXA (10/11/2024 1:19 PM DIRECTOR VISUAL) Anatomical Region Laterality Modality Bone Bone Density 10/12/2024 5:42 AM DIRECTOR VISUAL Impressions 10/12/2024 5:43 AM DIRECTOR VISUAL IMPRESSION: WHO Classification: Normal RECOMMENDATIONS: All patients [...] 10/12/2024 5:42 AM Narrative 10/12/2024 5:43 AM DIRECTOR VISUAL [facility] [address] [place] [address] EXAMINATION: BONE DENSITY/DEXA INDICATIONS: Asymptomatic menopausal state [...] Procedure Note Jacob Mchugh MD - 10/12/2024 [facility] [address] [place] [address] EXAMINATION: BONE DENSITY/DEXA INDICATIONS: Asymptomatic menopausal state [...] to Health Maintenance Insurance AETNA Care Teams Soils Technician Relationship Specialty Start Date End Date Que Sandres MD [address] [place] [phone] PCP - General FAMILY PRACTICE 08/05/24
--- OUTSIDE RECORDS SUMMARY | 2025-02-22 10:21 | XMS_ITS | Clinical Summary ---
Author Organization [facility] [employer] Address [address] [place] [address] Care Team Providers Care Deliverer Food Name Role Phone Unavailable Primary Care Provider Unavailabl e Allergies No known active allergies Medications omeprazole magnesium (PRILOSEC ORAL) Take by mouth. Active loratadine (CLARITIN ORAL) Take by mouth. Active Active Problems No known active problems Encounters Date Type Department Care Team Description 02/20/2025 4:15 PM CDT Telephone Check Up [facility] Oncology and Hematology [facility] [address] [place] [address] Guerrero Hutson MD 02/14/2025 External Device Data STL ABSTRACTION Provider, Abstract 02/14/2025 External Device Data STL ABSTRACTION Provider, Abstract 02/14/2025 External Device Data STL ABSTRACTION Provider, Abstract 02/08/2025 8:30 AM CDT Office Visit [facility] Oncology [facility] [address] [place] [address] Guerrero Hutson MD Malignant neoplasm of upper-outer [...] Description 03/23/2025 10:00 AM CDT Office Visit [facility] Oncology and Hematology - [place] [address] [place] [address] [facility] [address] [place] [address] Guerrero Hutson MD [address] [facility] [address] [place] [address] Health Maintenance Due Date Last [...] 2006 INFLUENZA VACCINE (#1) 2024 Medicare [place] ([place]) Prev entative Visit/Annual Wellness Visit 11/16/2024 BREAST CANCER SCREENING 12/16/2025 12/16/19 25, 12/16/2024, 10/11/2024 RSV VACCINE (60+ or ) (1 - 1-dose 75+ series) 2031 OSTEOPOROSIS SCREENING Completed 10/11/2024, 2023 Insurance AETNA PPO [facility]
[2025-02-22 10:28] LABS: Hematocrit 45.5 % (37.0-47.0); Hemoglobin 14.6 g/dL (12.0-15.0)
== END 2025-02-22 09:20 | disposition home or self-care (01) ==
PROVIDERS: Anesthesiology; PCP Family Medicine; Visit Provider Surgery
DX: N63.20 Unspecified lump in the left breast, unspecified quadrant (principal); Z01.818 Encounter for other preprocedural examination
CPT/HCPCS: 36415; 85014; 85018; 86850; 86900; 86901; 93005

== ENCOUNTER 2025-03-01 00:28 | Day surgery (SDC) | payer MEDICARE, SELFPAY ==
[2025-02-21 15:49] VITALS: BMI 29.2
--- NOTE | 2025-02-21 15:57 | PC.NURSE ---
Report to the Outpatient Waiting Room, entrance under the green pavilion located off [facility], at time _0600_ on date _[id number]_. Planned Procedure Time: _0730_.? Nuclear med injection 0645 Time changes happen often and if your time is changed the preop area will call you the afternoon before. - You and your visitor will be asked to self-screen and do not enter if you have any COVID symptoms. Please call surgeon if you need to reschedule. - A mask is optional within the hospital at this time. - No food drink from midnight until time of surgery and no smoking, or chewing tobacco (or any form of nicotine). No chewing gum, candy or mints. Take only the following medications with a SIP of water on the morning of surgery: __None DO NOT STOP ANY OF YOUR OTHER PRESCRIPTION MEDICATIONS PRIOR TO SURGERY EXCEPT THE FOLLOWING Hold all vitamins and supplements for 3 days per anesthesiologist. Medications to discontinue per physician Date to take last dose Please no make-up, nail turkish, hairspray, perfume, deodorant, or body powder the day of surgery.? No jewelry (including any body piercings) or valuables the day of surgery, leave them at home.? Please take a shower or bath the night before, or the morning of, surgery with an antibacterial soap.? Wear comfortable, loose fitting clothing.? - Jewelry must be removed prior to entering the operating room.? Rings and piercings that are not removed may be cut off. - The hospital will not accept responsibility for valuables.? - Please leave all valuables, including medications, at home the day of surgery. If you are going home after surgery, a licensed transport truck driver must drive you home.? - NO public transportation without another adult if you receive anesthesia. - We recommend that an adult stay with you for 24 hours following discharge. - We also recommend that you do not drive, make important decision, drink alcoholic beverages, or take any drugs that were not prescribed by your health care provider for at least 24 hours after your discharge time. Follow any additional instructions given to you from your surgeon. Telephone instructions given to ___Milly__and asked if any additional questions and then verbalized understanding. Patient advised to call surgeon office or pre surgery nurse liaison [phone] if any additional questions.
[2025-03-01] VITALS (12 sets, daily range): BP systolic 114–175; BP diastolic 69–85; PULSE 62–101; RESP 12–20; TEMP 36.1–37.4; O2SAT 94–100
--- NOTE | ~2025-03-01 | XR_ITS ---
CHEST RADIOGRAPH CLINICAL HISTORY: POST MEDIPORT RIGHT SIDE PLACEMENT . COMPARISON: None available TECHNIQUE: Single portable postoperative view of the chest. FINDINGS Increased interstitial markings are identified bilaterally, findings suggesting mild pulmonary vascul ar congestion. A right internal jugular central venous port catheter identified with its tip projecting over the rig ht atrium. The remainder of the cardiomediastinal silhouette is otherwise unremarkable. Bibasilar densities, representing bilateral implants, consistent with patient's history. Increased density within the left lung base, likely related to patient's procedure, rather than intri nsic lung disease. IMPRESSION: Right internal jugular central venous port catheter identified in excellent position and ready for im mediate use. Mild pulmonary vascular congestion with indeterminate density in the left lung base, likely related t o patient's intervention rather than intrinsic lung disease. Reviewed, dictated and finalized at location A. IMPRESSION: Right internal jugular central venous port catheter identified in excellent pos ition and ready for immediate use. Mild pulmonary vascular congestion with indeterminate density in the left lung base, likely related to patient's intervention rather than intrinsic lung disea se.
--- NOTE | ~2025-03-01 | XR_ITS ---
INTRAOPERATIVE FLUOROSCOPY: CLINICAL HISTORY: 69 years old Female; MEDIPORT PLACEMENT RIGHT SIDE PROCEDURE COMMENTS: Limited intraoperative fluoroscopy of the mediastinum was performed. CUMULATIVE DOSE: 0.8 mGy FLUOROSCOPY TIME: 12.2 seconds FINDINGS/IMPRESSION: Please refer to operative note for further details. Reviewed, dictated and finalized at location A.
--- NOTE | ~2025-03-01 | NM_ITS ---
NM sentinel node inject only 03/01/2025 07:57 CDT INDICATION: Left breast cancer TECHNIQUE: 0.11 Millicuries Tc 99m filtered sulfur colloid was injected and 4 aliquots in the anterio r upper outer quadrant of the breast near the areola. Procedure performed by Dr. Mann. No images w ere obtained. IMPRESSION: 1: Status post left breast sentinel lymph node radiopharmaceutical injection. Reviewed, dictated and finalized at location B.
--- OUTSIDE RECORDS SUMMARY | 2025-03-01 00:30 | XMS_ITS | Clinical Summary ---
Author Organization [facility] Address [address] [place] [address] Care Team Providers Care Chief Solution Architect Name Role Phone Que Sanders MD Primary Care Provider [phone] Encounters Date Type Department Care Team Description 12/16/2024 1:48 PM CASINO FLOOR RUNNER - 12/16/2024 11:59 PM CASINO FLOOR RUNNER Hospital Encounter [facility] Mammography [address] [place], [place] [id number] Que Sanders MD Discharge Disposition: Home or Self Care (Routine Discharge) 12/16/2024 Travel from Last 3 Months Family History Medical History Relation Comments Breast Cancer Mother Relation Status Comments Mother Social History Tobacco Use Types Packs/Day Years Used Date Smoking Tobacco: Never Assessed Comments Unknown Sex and Gender Information Value Date Recorded Sex Assigned at Female 12/02/2024 11:30 AM CASINO FLOOR RUNNER Legal Sex Female 7:53 PM CDT Gender [...] Zoster Vaccines Completed 04/01/2022, 12/12/2021 Pneumococcal Vaccine: 50+ Years Completed 09/01/2022 RSV Immunization or 60+ [...] JARET LT DIGI Routine 12/16/2024 3:41 PM CASINO FLOOR RUNNER Abnormal mammogram US BREAST LT BIRAD LTD Routine 12/16/2024 3:06 PM CASINO FLOOR RUNNER Abnormal mammogram BONE DENSITY/DEXA Routine 10/11/2024 1:1 9 PM CASINO FLOOR RUNNER Asymptomatic menopausal state from Last 3 Months or Most Recently Relevant to Health Maintenance Results * MG DIAG W JARET LT DIGI (12/16/2024 3:41 PM CASINO FLOOR RUNNER) Anatomical Region Laterality Modality Breast Left Mammography, Rad iographic Imaging 12/16/2024 3:13 PM CASINO FLOOR RUNNER Impressions 12/16/2024 3:16 PM CASINO FLOOR RUNNER ===== IMPRESSION: ===== 1. Biopsy of left breast lesion. Assessment: ACR BI-RADS 4 - SUSPICIOUS FINDING(S) - BIOPSY SHOULD BE CONSIDERED Recommendation: 1:Biopsy should be considered Left Comments: Findings discussed with the patient following completion of exam. Ordered By: QUE SANDERS Interpreted By: Darrell Lawson, 12/16/2024 3:13 PM Narrative 12/16/2024 3:16 PM CASINO FLOOR RUNNER [id number] [place] [address] EXAMINATION: Digital left diagnostic mammogram with 3-D tomography. Left breast ultrasound [id number] EXAM DATE/TIME: 12/16/2024 1:58 PM REASON FOR [...] BREAST LT BIRAD LTD (12/16/2024 3:06 PM CASINO FLOOR RUNNER) Anatomical Region Laterality Modality Breast Left Ultrasound 12/16/2024 3:13 PM CASINO FLOOR RUNNER Impressions 12/16/2024 3:16 PM CASINO FLOOR RUNNER ===== IMPRESSION: ===== 1. Biopsy of left breast lesion. Assessment: ACR BI-RADS 4 - SUSPICIOUS FINDING(S) - BIOPSY SHOULD BE CONSIDERED Recommendation: 1:Biopsy should be considered Left Comments: Findings discussed with the patient following completion of exam. Ordered By: QUE SANDERS Interpreted By: Darrell Lawson, 12/16/2024 3:13 PM Narrative 12/16/2024 3:16 PM CASINO FLOOR RUNNER [facility] [address] [place] [address] EXAMINATION: Digital left diagnostic mammogram with 3-D tomography. Left breast ultrasound [id number] EXAM DATE/TIME: 12/16/2024 1:58 PM REASON FOR [...] Result * BONE DENSITY/DEXA (10/11/2024 1:19 PM CASINO FLOOR RUNNER) Anatomical Region Laterality Modality Bone Bone Density 10/12/2024 5:42 AM CASINO FLOOR RUNNER Impressions 10/12/2024 5:43 AM CASINO FLOOR RUNNER IMPRESSION: WHO Classification: Normal RECOMMENDATIONS: All patients [...] 10/12/2024 5:42 AM Narrative 10/12/2024 5:43 AM CASINO FLOOR RUNNER [facility] [address] [place] [address] EXAMINATION: BONE DENSITY/DEXA INDICATIONS: Asymptomatic menopausal state [...] Procedure Note Jacob Mchugh MD - 10/12/2024 [facility] [address] [place] [address] EXAMINATION: BONE DENSITY/DEXA INDICATIONS: Asymptomatic menopausal state [...] to Health Maintenance Insurance AETNA Care Teams Chief Solution Architect Relationship Specialty Start Date End Date Que Sanders MD [address] [place] [id number] PCP - General FAMILY PRACTICE 08/05/24
--- OUTSIDE RECORDS SUMMARY | 2025-03-01 00:30 | XMS_ITS | Clinical Summary ---
Author Organization [facility] [employer] Address [address] [place] [address] Care Team Providers Care Associate Professor Of Literacy Name Role Phone Unavailable Primary Care Provider Unavailabl e Allergies No known active allergies Medications omeprazole magnesium (PRILOSEC ORAL) Take by mouth. Active loratadine (CLARITIN ORAL) Take by mouth. Active Active Problems No known active problems Encounters Date Type Department Care Team Description 02/20/2025 4:15 PM CDT Telephone Check Up [facility] Oncology and Hematology [facility] [address] [place] [address] Guerrero Hutson MD 02/14/2025 External Device Data STL ABSTRACTION Provider, Abstract 02/14/2025 External Device Data STL ABSTRACTION Provider, Abstract 02/14/2025 External Device Data STL ABSTRACTION Provider, Abstract 02/08/2025 8:30 AM CDT Office Visit [facility] Oncology [facility] [address] [place] [address] Guerrero Hutson MD Malignant neoplasm of upper-outer [...] Description 03/23/2025 10:00 AM CDT Office Visit [facility] Oncology and Hematology - [place] [address] [place] [address] [facility] [address] [place] [address] Guerrero Hutson MD [address] [facility] [address] [place] [address] Health Maintenance Due Date Last [...] of 2) 2006 INFLUENZA VACCINE (#1) 2024 BREAST CANCER SCREENING 12/16/2025 12/16/19 25, 12/16/2024, 10/11/2024 RSV VACCINE (60+ or ) (1 - 1-dose 75+ series) 2031 OSTEOPOROSIS SCREENING Completed 10/11/2024, 2023 Insurance AETNA PPO [facility]
--- OUTSIDE RECORDS SUMMARY | 2025-03-01 00:30 | XMS_ITS | Clinical Summary ---
Author Organization [employer] Address [address] [place] [address] Care Team Providers Care Regulator Assembler Name Role Phone Barbara Givens MD Primary Care Provider [phone] Source Comments [facility] [employer],non-owned Affiliates and Associated Physician Practices is amultiple site organization consisting of ambulatory clinics and hospital sitesin [place], [place], [place] and [place]. This disclosure is being madepursuant to the Care Everywhere program and may not contain all information available regarding this patient. Last updated 18.[employer] Medications * Be aware that medications may not be up to date on this document. Alwaysverify current medications with the patient. No known [...] drink = 0.6 oz p ure alcohol) Comments Unknown Sex and Gender Information Value Date Recorded Sex Assigned at Not on file Legal Sex Female 6:17 PM PRIMARY COUNSELOR Gender Identity Not on file Sexual Orientation [...] on patient's age to complete this topic Insurance AETNA AETNA MEDICARE ADV SELF PAY NO INSURANCE Member Subscriber Plan / Payer (Ef fective for All Dates) Name:Gertrude Kahn Member ID:Not on file Relation to Subscriber:Not on file Name:GERTRUDE KAHN Subscriber ID:Not on file (Home) Address: [address] [place] [id number] Payer ID:Not on file Group ID:Not on file Type:Self Pay Address: [place], [place] Care Teams Regulator Assembler Relationship Specialty Start Date End Date Barbara Givens MD [address] [place], [place] [id number] PCP - General 01/25/19
--- OUTSIDE RECORDS SUMMARY | 2025-03-01 00:30 | XMS_ITS | Clinical Summary ---
Author Organization [facility] Care Team Providers Care Chaplaincy Name Role Phone Unavailable Primary Care Provider Unavailabl e Social History Tobacco Use Types Packs/Day Years Used Date Smoking Tobacco: Never Assessed Comments Unknown Sex and Gender Information Value Date Recorded Sex Assigned at Not on file Legal Sex Female 11:12 AM INCLUSION MANAGER Gender Identity Not on file Sexual Orientation [...]
[2025-03-01] MEDS: LIDOCAINE/PRILOCAINE CREAM 2.5-2.5% TUBE 1 EACH TOPICAL (06:19)
[2025-03-01] MEDS: LACTATED RINGERS 1,000 ML 30 ML IV CONT ×2 (06:35→12:35)
[2025-03-01 06:49] LABS: Basophils Percent Auto 0.5 % (0.2-1.2); Eosinophils Absolute Auto 0.2 K/mm3 (0-0.3); Eosinophils Percent Auto 2.6 % (0-4.4); Hematocrit 44.1 % (37.0-47.0); Hemoglobin 14.4 g/dL (12.0-15.0); Immature Granulocyte Absolute 0.01 K/mm3 (0.00-0.031); Immature Granulocyte Percent A 0.2 % (0-0.5); Lymphocytes Percent Auto 25.6 % (18.3-44.2); Mean Corpuscular HGB Conc 32.7 g/dl (32-36); Mean Corpuscular Hemoglobin 30.4 pg (26-34); Mean Platelet Volume 10.3 fl (7.4-10.4); Monocytes Absolute Auto 0.6 K/mm3 (0.1-0.6); Monocytes Percent Auto 9.5 % (2.6-8.5); Neutrophils Absolute Auto 4.1 K/mm3 (1.3-6.7); Neutrophils Percent Auto 61.6 % (45.5-73.1); Platelet Count Result 225 k/mm3 (150-375); Red Blood Count 4.74 M/mm3 (4.2-5.4); Red Cell Distribution Width 13.2 % (11.5-14.5); White Blood Count 6.6 K/mm3 (4.5-10.0)
--- NOTE | 2025-03-01 06:53 | WPDHPUPDATE1 ---
History and Physical Update Update Date/Time: 03/01/25 06:53 Patient seen and examined in pre-operative holding area. No interval change in medical history or symptoms. Patient remembers previous discussion of benefits and alternatives to procedure. Continues to desire to proceed with bilateral breast reconstruction with silicone implants and acellular dermal matrix possible tissue expanders at time of bilateral [id number]-wibdyca mastectomy. I reviewed the risks including but not limited to bleeding ,infection, asymmetry, undesireable cosmetic appearance, partial/total skin loss, device failure, capsular contracture, no change or worsening of symptoms, change in sensation. I discussed the possible use of assistants and their level of participation in the case. Patient stated understanding and signed the consent form wishing to proceed
[2025-03-01] MEDS: ACETAMINOPHEN 500 MG TABLET 1000 MG PO (06:56)
[2025-03-01 06:59] LABS: INR 0.9; Partial Thromboplastin Time 23.9 Seconds (22.3-36.8); Prothrombin Time 12.5 Seconds (11.1-14.7)
--- NOTE | 2025-03-01 07:01 | P.OP_ITS ---
Procedure Note - Detailed Date of Procedure 03/01/25 Pre-op Diagnosis Left breast invasive lobular carcinoma Post-op Diagnosis Same Procedure Performed 1. Left total mastectomy 2. Right prophylactic mastectomy 3. Left sentinel lymph node biopsy 4. Injection of Lymphoseek for sentinel lymph node mapping 5. Injection of methylene blue for dual tracing 6. Right internal jugular MediPort placement using ultrasound guidance and fluoroscopy Surgeon Susan Mann MD License Examiner Priscilla Malave PA-C Anesthesia General Description of Procedure Patient was identified in the preoperative holding area brought to the operating room suite. Prior to presenting to the preoperative holding area patient was taken to nuclear Medicine where I performed Lymphoseek injection in the periareolar area the subdermal plane for sentinel lymph node biopsy. She was then laid supine in the OR table. Sequential compression devices were applied. General Endotracheal anesthesia was induced without difficulty. Diluted methylene blue was injected to the left periareolar region in the subdermal plane for dual tracing for the sentinel lymph node biopsy. The right neck and upper chest were prepped and draped in a sterile fashion. Attention was turned to the right neck. Ultrasound was used to identify the internal jugular vein and a small incision was made overlying this area. Local anesthetic was infiltrated in the subcutaneous tissue and a needle was then slowly advanced under ultrasound guidance into the lumen of the internal jugular vein. Once dark venous blood was aspirated the syringe was removed and a guidewire was introduced into the internal jugular vein. Fluoroscopy images were obtained to verify the position of the wire going down into the superior vena cava. Once this was confirmed a small pocket was made by making a small incision with a 15 blade in the right upper chest. Dissection was carried down through the subcutaneous tissue and a small pocket was created for the future port. Hemostasis was assured. I then proceed to tunnel the catheter from this pocket to the neck after injecting local anesthetic in the subcutaneous tissue of the neck. Fluoroscopy images were obtained to measure the length of the catheter with the tip at the cavoatrial junction. The catheter was then cut distally at approximately 24 cm and connected to port. The port was then flushed with saline. An introducer with the peel-away sheath was then introduced into internal jugular vein under fluoroscopy guidance using the previously placed wire. The wire was removed as well as the introducer leaving the peel-away sheath. The catheter was then introduced into the IJ via the peel-away sheath which was slowly removed. Once the catheter was in good position, I was able to aspirate dark venous blood and easily flushed the port using the sanchez needle. A x-ray picture was taking to ensure there is no kinks throughout the catheter and the catheter tip was in good position at the superior aspect of the cavoatrial junction. Once this was performed the port was then secured to pectoralis fascia using interrupted silk sutures and placed into the subcutaneous pocket. The port was again aspirated and flushed with heparinized saline. The deep dermal layer was closed with interrupted Vicryl and the skin was closed with 4-0 Monocryl in a subcuticular fashion. The small incision in the neck was closed with a single interrupted Monocryl suture. Dermabond was applied to all the incisions. The drapes were then taken down and bilateral breast and left axillary regions were prepped and draped in a sterile fashion. The Neoprobe was used to scan the left axilla to find the area of highest radio activity and a small incision was made overlying this area. Dissection was carried down through the subcutaneous tissue and the clavipectoral fascia was opened. I was able to identify 3 nodes there were hot, sentinel lymph node 1 count was 20,541, sentinel lymph node 2 count was 10,722, and sentinel lymph node 3 count was 14,461. All 3 nodes were excised using the LigaSure device and sent to pathology as fresh specimens. The Neoprobe was again used to scan the axilla was used for any areas of radio activity there were at least 10% of the highest count and no other areas were identified. The axillary wound was irrigated with saline hemostasis was assured. The clavipectoral fascia was approximated with a running 3-0 Vicryl. The deep dermal layer was then closed with interrupted 3-0 Vicryl followed by 4- 0 Monocryl in a subcuticular fashion and Dermabond for the skin. Attention was then turned to the left breast. Dr. Suazo had already previously marked incisions which included a fish mouth incision encompassing the nipple areola complex, and dissection was then carried out in the thin areolar tissue between the subcutaneous and the breast tissue, superiorly to the? inferior border of the clavicle, medial to the lateral aspect of the sternal border, laterally to the latissimus dorsi, and inferior to the inframammary fold down to the muscle. The? breast tissue along with the pectoralis fascia was then carefully dissected off the pectoralis muscle posteriorly.? Once the entire breast was excised, it was oriented with a short stitch superior and a long stitch lateral and sent to pathology as a fresh specimen. The cavity was irrigated and hemostasis was assured. Attention was then turned to the right breast. A similar fish mouth incision was made encompassing the nipple areola complex and dissection was carried down through the subcutaneous tissue into the breast tissue. Dissection was then performed in the thin areolar tissue between the subcutaneous and the breast tissue, superiorly to the? inferior border of the clavicle, medial to the lateral aspect of the sternal border, laterally to the latissimus dorsi, and inferior to the inframammary fold down to the muscle. The? breast tissue along with the pectoralis fascia was then carefully dissected off the pectoralis muscle posteriorly.? Once the entire breast was excised, it was oriented with a short stitch superior and a long stitch lateral and sent to pathology as a fresh specimen. The cavity was irrigated and hemostasis was assured. the case was then turned over to Dr. Suazo for bilateral tissue hand clerical verifier placement, please refer to his procedure note for further details. All needles, instruments, and sponge counts were correct as reported by the operating room staff. Patient tolerated the procedure well with no immediate complications. Priscilla Malave PA-C was presented and assisted with patient positioning and retraction throughout the case. Estimated Blood Loss 80 Drains Yes Pathology Yes Complications No immediate complications Condition Stable Disposition PACU [facility] Billing Surgery - Charge Forward: Surgery Billing (CPT 53767 - L, 87923 - 59 R, 93386 - 59, 34604 - 59, 74153 - 59, [id number] - 59, [id number] - 59)
--- NOTE | 2025-03-01 07:01 | WPDHPUPDATE1 ---
History and Physical Update Update Date/Time: 03/01/25 07:01 - Left total mastectomy, right prophylactic mastectomy, left sentinel lymph node biopsy with injection of Lymphoseek and methylene blue, MediPort placement and immediate reconstruction by Plastic surgery. History and Physical has been reviewed, including an updated exam of the patient. There are NO changes in the patient's condition. Risks, benefits, and alternatives have been discussed and questions answered. Patient agrees to proceed with procedure.
--- NOTE | 2025-03-01 07:02 | W.PM.PROC2 ---
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 the consent form was signed. Patient was taken back to the operating room and placed on the table in the supine position. Time-out was performed with Anesthesia, surgeons, and staff agreeing on patient's name, site, and surgery to be performed. SCDs were placed on the lower extremities and inflated. Antibiotics were given IV. After general anesthesia was administered the patient was prepped and draped in the usual sterile fashion. Care was given to Dr. Mann who proceeded with performing a Port-A-Cath placement and left sentinel lymph node biopsy dictated separately. After this was completed Dr. Mann proceeded with bilateral mastectomies with my assistance as indicated and the mastectomy report will also be dictated separately. After completion of the left mastectomy I proceeded with irrigation with antibiotic irrigation and hemostasis with Bovie cautery. I proceeded with suturing in a piece of large, contoured AlloDerm along the inframammary fold and anterior axillary line with 2-0 Vicryl suture. 2-0 Vicryl was used to secure the superior aspect of this to the pectoralis major muscle as well to help create a sling and prevent window shading of the AlloDerm. I initially placed an Allergan 405 cc implant sizer with medium projection and it was noted this volume seemed reasonable for the patient's reconstructive goals but was too wide for the patient's chest dimensions. The Sizer was removed. A 10 EDWIN drain was placed along the inframammary fold. An on Q pump catheter was placed along the superior aspect of the left breast pocket. I irrigated with antibiotic irrigation. Hemostasis was done with Bovie once more. The skin was prepped with Betadine and fresh towels were placed down. I changed my gloves and rinsed instruments and the antibiotic irrigation. I proceeded with taking an Allergan Natrelle implant reference number SCF [id number] directly from the package after rinsing it in antibiotic irrigation and placed it in its inappropriate position under the left breast AlloDerm pocket which provided near full coverage anteriorly. I proceeded with closure using 3-0 Vicryl for deep and dermal closure. It was noted that laterally there was excess loose skin which obscured the lateral breast contour and could possibly lead to lateral implant migration. This excess area was marked and I de-epithelizled this skin creating a 5x3 cm inferior flap of dermis and subcutaneous tissue to rotate superiorly and improve the lateral breast contour while tightening up the skin envelope. This was closed with 3-0 vicryl for deep and dermal closure. 4-0 Monocryl was then used for subcuticular closure. The drain was hooked to bulb suction and 5 cc of 1% lidocaine with epinephrine and 0.5% Marcaine plain were injected through the on Q catheter for initial bolus loading dose. The skin flaps appeared viable with good cap refill. Gloves and instruments were changed as were proceeded with the right mastectomy. Once the mastectomy was completed I irrigated with antibiotic irrigation and hemostasis with Bovie cautery. There were areas of the skin flaps that were thicker than the left breast and the flaps were thinned in these areas with bovie cautery to improve contour and symmetry to the left breast. this additional tissue was sent for further pathology. I proceeded with sewing in another piece of large, contoured, perforated AlloDerm along the inframammary fold and anterior axillary line with 2-0 Vicryl suture. A 10 [place] drain was placed along the inframammary fold and on Q pump catheter placed along the superior aspect of the right breast cavity. After further antibiotic irrigation and hemostasis, the skin was prepped with Betadine and fresh towels were placed. We changed our gloves and rinsed our instruments and antibiotic irrigation and I proceeded with taking another allergan natniloe SCF-415 implant serial number [id number] from the package after rinsing it in antibiotic irrigation and placed it in the right breast pocket with near complete coverage of the AlloDerm. There was reasonable shape, position, and symmetry to the reconstructed left breast. The incision was closed with 3-0 Vicryl for deep and dermal closure trimming excess skin medially as needed. Again it was noted there was excess skin laterally. I proceeded with marking this extra tissue and de epithelializing these areas to create an 6x4 cm inferior flap of dermis and subcutaneous tissue to advance superiorly to allow for skin tightening but maintaining skin flap volume in these areas. These were closed with 3-0 Vicryl for deep and dermal closure. 4-0 Monocryl was used for subcuticular closure. The drain was hooked to bulb suction and 5 cc of 1% lidocaine with epinephrine and 0.5% Marcaine plain were injected in the right on Q catheter for initial bolus loading dose. The incisions were dressed with Mastisol, Steri-Strips, 4 x 4, ABDs and a breast binder. The patient was awakened from anesthesia and transferred to the recovery room in stable condition. Complications: None Estimated blood loss: 10 cc. Disposition: Patient tolerated the procedure well and will be staying for observation overnight. Ave Hamilton PA-C was essential for positioning, retraction, closure and dressing placement [facility] Billing Surgery - Charge Forward: Surgery Billing ([id number], 37030-HC,59 37789-BV,59 73900-UC,59 89772-BC,59 14124-BS,59 88531-21,RT 59684-64,LT,[address] adding modifier and removing 80)
--- NOTE | 2025-03-01 07:11 | WPDANESEPPF ---
Anes - Initial Pre Proc Eval Procedure: Operation Date: 03/01/25 07:30 Proposed Procedures p Left Total Mastectomy, Right Prophylactic Mastectomy, Left [place] Lymph Node Biopsy, Injection Lymphoseek and Methylene Blue for Node Mapping, - Susan Mann MD s MediPort Placement, - Susan Mann MD s Bilateral Immediate Breast Reconstruction with Prepectoral Silicone Implant with Acellular Dermal Matrix, Possible Bilateral Tissue Director Personal - Ann Suazo MD Date/Time: 03/01/25 07:11 Surgeon: Susan Mann MD Pre Op Diagnosis: malig neoplasm left breast Patient Data Age: 69 Gender: F Height: 1.57 m Weight: 72.7 kg Allergies Allergy/AdvReac Type Severity Reaction Status Date / Time No Known Allergies Allergy Verified 03/01/25 06:53 Home Medications ?Medication ?Instructions ?Recorded ?Confirmed ?Type omeprazole 20 mg capsule,delayed 20 mg PO DAILY 08/20/20 03/01/25 History release loratadine 10 mg tablet (Claritin) 10 mg PO DAILY PRN Allergy Symptoms 02/14/22 03/01/25 History Laboratory Tests 03/01/25 06:43 WBC 6.6 K/mm3 (4.5-10.0) RBC 4.74 M/mm3 (4.2-5.4) Hgb 14.4 g/dL (12.0-15.0) Hct 44.1 % (37.0-47.0) MCV 93.0 fl (80-100) MCH 30.4 pg (26-34) MCHC 32.7 g/dl (32-36) RDW 13.2 % (11.5-14.5) Plt Count 225 k/mm3 (150-375) MPV 10.3 fl (7.4-10.4) Immature Gran % (Auto) 0.2 % (0-0.5) Neut % (Auto) 61.6 % (45.5-73.1) Lymph % (Auto) 25.6 % (18.3-44.2) Toole % (Auto) 9.5 H % (2.6-8.5) Eos % (Auto) 2.6 % (0-4.4) Baso % (Auto) 0.5 % (0.2-1.2) Lymph # (Auto) 1.70 K/mm3 (0.9-3.2) Toole # (Auto) 0.6 K/mm3 (0.1-0.6) Eos # (Auto) 0.2 K/mm3 (0-0.3) Baso # (Auto) 0.0 K/mm3 (0.0-0.1) Abs Immat Gran (auto) 0.01 K/mm3 (0.00-0.031) Absolute Neuts (auto) 4.1 K/mm3 (1.3-6.7) Absolute Nucleated RBC 0.000 K/mm3 (0.0-0.012) Nucleated RBC % 0.0 % (0.0-0.2) PT 12.5 Seconds (11.1-14.7) INR 0.9 APTT 23.9 Seconds (22.3-36.8) Patient hx anesthesia problems: none Family hx anesthesia problems: none Results Review: All pre-operative results and documents have been reviewed as part of the pre-operative evaluation. [facility] Past Medical History Medical History Elevated blood sugar GERD (gastroesophageal reflux disease) MVP (mitral valve prolapse) Rectal fistula (~2007) Repaired Squamous cell skin cancer, face (~2013) Surgical History Surgical History History of hysterectomy (~1990) Status post left foot surgery Removal of calcification Family History Family History Father Hypertension Family history of lung cancer Mother Family history of malignant neoplasm of breast in first degree relative Social History Social History Smoking status: Never smoker Second hand tobacco smoke exposure: No Alcohol intake: current Drinks per week: 2 Alcohol use details: Occasional Substance use: never Substance use type: does not use Do You Feel Safe in your Home?: Yes Lack of Transportation: No Lack of Food: Never True Current Housing: Decline to Answer Concerned About Future Housing: Decline to Answer Difficulty Paying Gas/Electric Bills: Decline to Answer Difficulty Paying for Meds: Decline to Answer Currently Unemployed: Decline to Answer Education: Decline to Answer Difficulty w/ Childcare or Family Care: Decline to Answer Living arrangements: with family Gender identity (if verbalized by the patient): Female Spiritual care concerns: No Anes - Eval Final PreProcedure Day of Procedure 03/01/25 07:11 Patient weight: overweight Heart: regular rate and rhythm Lungs: clear to auscultation Airway: Mallampati scale class II Neurological: alert and oriented Last oral intake: >/= 8 hours ASA classification: III Emergent: no Anesthetic plan: proceed Anesthesia type and monitoring: general LMA and standard monitoring Results Review: All pre-operative results and documents have been reviewed as part of the pre-operative evaluation. Informed Consent: The patient's anesthetic plan and its attendant risks and benefits were discussed with the patient/family/POA. Questions were solicited and answers provided to the satisfaction of the patient/family/POA.
--- NOTE | 2025-03-01 07:17 | SUR.PREOP ---
0715-to Nuclear med-delay r/t late arrival of Dr. Mann.
[2025-03-01] MEDS: HEPARIN SODIUM 5,000 UNITS/ML VIAL 5000 UNITS IRRIGATION (07:37)
[2025-03-01] MEDS: METHYLENE BLUE 0.5% INJ 10 ML AMPULE 5 ML IRRIGATION (07:37)
[2025-03-01] MEDS: BUPIVACAINE/EPINEPHRINE 0.5% 30 ML VIAL INFILTRATE (07:37)
[2025-03-01] MEDS: ceFAZolin 2 GM/D5W 50 ML 2 GM/50 ML BAG IVPB (08:01)
[2025-03-01] MEDS: HEPARIN SODIUM, PORCINE 10,000 UNITS/10 ML VIAL 10000 UNITS IRRIGATION (08:03)
[2025-03-01] MEDS: LIDO 1%/EPINEPHRINE 1:100,000 50 ML VIAL 30 ML INFILTRATE (08:55)
[2025-03-01] MEDS: BUPivacaine HCL 0.5% PF 30 ML VIAL INFILTRATE (08:56)
[2025-03-01] MEDS: NACL 0.9% IRRIG POUR BOTTLE 1,000 ML, GENTAMICIN SULFATE INJ 160 MG, ceFAZolin 2 GM IRRIGATION (09:00)
[2025-03-01] MEDS: BUPivacaine 0.5% ON-Q PUMP 335 ML INTRADERM (12:30)
[2025-03-01] MEDS: fentaNYL CITRATE INJ (*CRX) 100 MCG/2 ML VIAL 25 MCG IV PUSH ×4 (13:00→13:18)
[2025-03-01] MEDS: LACTATED RINGERS 1,000 ML 100 ML IV CONT (14:24)
[2025-03-01] MEDS: ACETAMINOPHEN 325 MG TABLET 650 MG PO ×2 (14:28→20:37)
[2025-03-01] MEDS: DOCUSATE SODIUM 100 MG CAPSULE PO (14:28)
[2025-03-01] MEDS: HYDROcodone/acetaminophen (*CRX) 5-325 MG TABLET 1 TAB PO (17:13)
--- NOTE | 2025-03-01 18:17 | PC.NURSE ---
Patient is having increased blood pressures. Per Dr. Mann's request, orders were received to administer Fairview 5-325 for underlying pain control. Rechecked patient's blood pressure 30 minutes after administering Fairview 5-325 (see eMAR.) Blood Pressure has increased since last reading at 1645. [facility] technician 3rd shift nurse Vannesa and instructed her to recheck within 30 min to let Fairview take full effect. If blood pressure is still increased, call Dr. Mann and report blood pressures.
--- NOTE | 2025-03-01 20:14 | ECG_ITS ---
Test Date: 2025-03-01 21:45:45 Measurements Intervals [place] Rate: 96 P: 62 MI: 164 QRS: 62 QRSD: 80 T: 61 QT: 333 QTc: 422 Interpretive Statements SINUS RHYTHM MINIMAL Q WAVES- INFERIOR LEADS CANNOT R/O SEPTAL INFARCT, AGE INDETERMINATE BASELINE ARTIFACT- II, III, AVR, AVL, AVF, V1-V3 BORDERLINE ECG Compared to ECG 02/22/2025 09:49:52 NO SIGNIFICANT CHANGE Electronically Signed On 03-02-2025 06:03:57 CDT by Loki Evans D.O.
[2025-03-01] MEDS: CEPHALEXIN 500 MG CAPSULE PO (20:37)
[2025-03-01] MEDS: hydrALAZINE HCL 20 MG/ML VIAL 10 MG IV PUSH ×2 (20:38→21:05)
--- NOTE | 2025-03-01 21:32 | PC.NURSE ---
called respiratory due to Stat EKG ordered at 2013 and has yet to be completed- RT stated someone would be by shortly to complete.
--- NOTE | 2025-03-01 21:41 | PC.NURSE ---
Respiratory in room now to complete EKG
--- NOTE | 2025-03-01 23:26 | P.CONIM_ITS ---
Assessment and Plan Assessment and plan (1) Elevated blood pressure reading without diagnosis of hypertension: Code(s): R03.0 - Elevated blood-pressure reading, without diagnosis of hypertension Status: Acute (2) Invasive lobular carcinoma of left breast in female: Code(s): C50.912 - Malignant neoplasm of unspecified site of left female breast Status: Acute (3) HER2-positive carcinoma of left breast: Code(s): C50.912 - Malignant neoplasm of unspecified site of left female breast; Z17.31 - Human epidermal growth factor receptor 2 positive status Status: Acute (4) Urinary retention with incomplete bladder emptying: Code(s): R33.9 - Retention of urine, unspecified Status: Acute (5) Mixed hyperlipidemia: Code(s): E78.2 - Mixed hyperlipidemia Status: Acute Plan Patient has elevated blood pressure reading without history of hypertension. Patient's blood pressures are modestly elevated but not dangerously so. Blood pressure elevation could be due to change inside of blood pressure checks as patient is receiving blood pressure checks on her lower extremities. She does report that her blood pressures in her left lower extremity have been higher than the blood pressures on her right. But blood pressure pressure elevation could also be due to acute stress recent surgical procedure and possibly some underlying component of discomfort although patient is denying active pain. P.r.n. hydralazine has been ordered IV Q 4 hours as needed for systolic blood pressures greater than 160. I will hold off on starting any scheduled antihypertensives as the patient has history of being normotensive on recent outpatient encounters. If blood pressures remain elevated after discharge in after monitoring at home may consider addition of oral antihypertensives after discharge in less patient's blood pressures precipitously continue to elevate or she becomes otherwise symptomatic. The patient reported sensation of incomplete bladder emptying. The patient has had great urine output since surgery. As nursing staff to check postvoid residual and patient had 500 mL of urine void but still had 200 mL of residual on bladder scan. Subsequently in order has been placed for p.r.n. straight catheterization for residuals greater than 150. Hopefully this is due to anesthesia effect and not a long-term issue. BMP with a.m. labs The patient reports that she is not on statin therapy since her HDL is also high. But given her elevated LDL and triglyceride level she may benefit from the addition of a statin as outpatient. However, will defer this decision to the patient's outpatient care provider HPI Date of Consult Consult date: 03/02/25 Requesting Physician: Susan Mann MD Primary Care Provider: Barbara Givens MD Consult Narrative Narrative: Milly Jama is a 69 year old female with a past medical history of mixed hyperlipidemia, allergic rhinitis, prior hysterectomy and in basal at ductal carcinoma who was admitted for bilateral mastectomy with reconstruction on 03/01/2025 who has now developed elevated blood pressures. The patient reports that as outpatient her blood pressures have been running between 125 and 140. She reported that during her last visit with her primary care provider her systolic blood pressure was 141. Since that time she has been checking her blood pressures on a somewhat frequent basis in her systolic blood pressures at home have been in the 125-135 range for the most part. She has not noticed much fluctuation from these values. She has noticed that since she has been in the hospital they been checking her blood pressures in her legs in that her blood pressure in her left leg is been slightly higher than the blood pressure in her right leg. She denies any current pain palpitations or anxiety. She reports that she is having no postoperative pain at the moment. She has been tolerating a diet postoperatively. Her preop hemoglobin had been stable at 14. She did not have her usual bowel movement that she usually has on a daily basis prior to surgery. She has noticed her abdomen feels a little bit distended and she has having to think about emptying her bladder. She is unsure if she is emptying her bladder completely. She denies any dysuria or hematuria. She reports that her last bowel movement on the was normally formed and brown. She denies any headaches or vision changes. She reports that she has chronically poor vision and wears contacts or glasses all the time. Source of information comes from the patient is a extremely good historian and from review of external medical records and nursing report. Review of Systems 2 Review of Systems: 12 systems were reviewed with pertinent positives and negatives per HPI. Except as documented in the HPI, all other systems were reviewed and are negative. [facility] Past Medical History Medical History (Updated 03/02/25 @ 01:01 by Radha Flores DO) Invasive lobular carcinoma of left breast in female HER2-positive carcinoma of left breast GERD (gastroesophageal reflux disease) Mixed hyperlipidemia Elevated blood sugar MVP (mitral valve prolapse) Squamous cell skin cancer, face (~2013) Surgical History Surgical History (Updated 03/01/25 @ 23:30 by Radha Flores DO) Rectal fistula (~2007) Repaired History of hysterectomy (~1990) Status post left foot surgery Removal of calcification Family History Family History Father Hypertension Family history of lung cancer Mother Family history of malignant neoplasm of breast in first degree relative Social History Social History (Updated 03/02/25 @ 01:11 by Radha Flores DO) Social History: The patient has been since 2014. She did not have any biologic children but has step children in stepped grand children. 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 She lives alone is is independent in all activities of daily living. She is a lifelong nonsmoker and does not drink alcohol or use illicit substances. Code status: DNR/DNI (her DNR has been suspended due to surgical procedure) Healthcare power of employee benefits attorney: Julieta Frye (sister) Smoking status: Never smoker Second hand tobacco smoke exposure: No Alcohol intake: current Drinks per week: 2 Alcohol use details: Occasional Substance use: never Substance use type: does not use Do You Feel Safe in your Home?: Yes Lack of Transportation: No Lack of Food: Never True Current Housing: Decline to Answer Concerned About Future Housing: Decline to Answer Difficulty Paying Gas/Electric Bills: Decline to Answer Difficulty Paying for Meds: Decline to Answer Currently Unemployed: Decline to Answer Education: Decline to Answer Difficulty w/ Childcare or Family Care: Decline to Answer Living arrangements: with family Gender identity (if verbalized by the patient): Female Spiritual care concerns: No Meds Home Medications and Allergies Home Medications ?Medication ?Instructions ?Recorded ?Confirmed ?Type omeprazole 20 mg capsule,delayed 20 mg PO DAILY 08/20/20 03/01/25 History release loratadine 10 mg tablet (Claritin) 10 mg PO DAILY PRN Allergy Symptoms 02/14/22 03/01/25 History cephalexin 500 mg capsule 500 mg PO Q12H #14 caps 03/01/25 Rx hydrocodone 5 mg-acetaminophen 325 1 tablet PO Q6H PRN pain #16 tabs 03/01/25 Rx mg tablet Allergies Allergy/AdvReac Type Severity Reaction Status Date / Time No Known Allergies Allergy Verified 03/01/25 06:53 Vital Signs Vital Signs - 24 hr 03/01/25 06:16 03/01/25 12:35 03/01/25 12:50 Temperature 97.8 F 96.9 F L Pulse Rate 79 62 71 Respiratory Rate 20 14 12 Blood Pressure 156/85 H 130/79 114/76 Pulse Oximetry 100 100 100 Oxygen Delivery Room Air Simple Face Mask Simple Face Mask Oxygen Flow Rate 6 6 03/01/25 13:05 03/01/25 13:10 03/01/25 13:20 Temperature Pulse Rate 65 63 Respiratory Rate 18 14 Blood Pressure 127/78 137/72 Pulse Oximetry 100 95 Oxygen Delivery Simple Face Mask Room Air Room Air Oxygen Flow Rate 6 03/01/25 13:35 03/01/25 14:00 03/01/25 16:00 Temperature 97.0 F L 97.9 F Pulse Rate 74 74 Respiratory Rate 14 18 Blood Pressure 123/74 153/85 H Pulse Oximetry 94 96 Oxygen Delivery Room Air Room Air Oxygen Flow Rate 03/01/25 16:45 03/01/25 17:30 03/01/25 19:00 Temperature 99.3 F 98.4 F Pulse Rate 101 H 89 Respiratory Rate 18 18 Blood Pressure 166/69 H 175/70 H 169/80 H Pulse Oximetry 96 97 Oxygen Delivery Oxygen Flow Rate 03/01/25 20:37 03/01/25 21:00 Temperature Pulse Rate 77 91 Respiratory Rate 18 Blood Pressure 171/69 H 157/71 H Pulse Oximetry Oxygen Delivery Oxygen Flow Rate Exam 2 Narrative: Weight 72.9 kg BMI 29.4 Const: Other: No acute distress, well-developed well-nourished, appears stated age HENMT: Other: Mucous membranes are moist, no oral pharyngeal erythema, fair dentition Eyes: Other: Pupils are equal and reactive, bilateral cataracts noted Neck: Other: No JVD, no lymphadenopathy Chest: Other: Patient has compression overall in place with surgical dressings noted with bilateral drains in have about 50 mL of serosanguineous fluid Resp: Other: Clear to auscultation bilaterally, no increased work of breathing Cardio: Other: Regular rate, regular rhythm, 2+ bilateral radial pedal pulses, no JVD GI: Other: Distended, tight, nontender, hypoactive bowel sounds Skin: Other: No jaundice, no pallor, normal temperature to touch Neuro: Other: Alert oriented x4, speech is clear, no facial asymmetry Extrem: Other: No clubbing, cyanosis or edema Psych: Other: Appropriate mood and affect, pleasant and cooperative, judgment and insight intact Results Labs 03/01/25 06:43 Labs: Short CBC 03/01/25 Range/Units 06:43 WBC 6.6 (4.5-10.0) K/mm3 Hgb 14.4 (12.0-15.0) g/dL Hct 44.1 (37.0-47.0) % Plt Count 225 (150-375) k/mm3 outpatient labs from March reviewed demonstrated sodium 139 potassium 4.7 chloride 104 BUN 16 creatinine 0.7 glucose 105 normal transaminases Fasting lipid panel from March demonstrated triglycerides 159 total cholesterol 228 LDL 131 non HDL 158 HDL 70 EKG: Personally reviewed and interpreted cardiology interpretation pending. Normal sinus rhythm. No evidence of ischemia rate 98 QTC 422 Quality VTE Prophylaxis VTE prophylaxis: mechanical ordered (SCDs per primary service) Hospitalist MIPS Advance Care Plan I have confirmed that the patient's Advanced Care Plan is present, code status is documented, or surrogate decision maker is listed in patient medical record.: Yes Medication Reconciliation I have utilized all available resources to obtain, update and review the patients current medications (includes all prescriptions, OTC, herbals, cannabis, and nutritional supplements).: Yes
[2025-03-02 00:30] VITALS: BP 139/64; PULSE 96; RESP 18; TEMP 37.3; O2SAT 97
[2025-03-02] MEDS: ACETAMINOPHEN 325 MG TABLET 650 MG PO ×2 (02:40→09:13)
[2025-03-02 04:50] VITALS: BP 169/71; PULSE 79; RESP 18; TEMP 37.1; O2SAT 98
[2025-03-02] MEDS: traMADol HCL (*CRX) 50 MG TABLET PO (04:54)
[2025-03-02] MEDS: hydrALAZINE HCL 20 MG/ML VIAL 10 MG IV PUSH (04:54)
[2025-03-02 05:35] VITALS: BP 133/54; PULSE 90
--- NOTE | 2025-03-02 06:25 | PC.NURSE ---
0625- Lab at bedside to draw pts morning labs and pt refused at this time- stated she wants to talk to her doctor first and make a decision after that.
[2025-03-02 07:45] VITALS: BP 122/64; PULSE 96; RESP 18; TEMP 36.8; O2SAT 96
--- NOTE | 2025-03-02 07:54 | P.SS_ITS ---
Same Day Admit/Disch: HPI History of Present Illness Chief complaint: malig neoplasm left breast Narrative: Milly Jama is a 69 year old female with history of left breast invasive lobular carcinoma who underwent a bilateral total mastectomy, left axillary sentinel lymph node biopsy, MediPort placement, and immediate reconstruction with silicone implants on March 01. Patient was admitted for overnight observation after surgery. [facility] Past Medical History Medical History (Updated 03/02/25 @ 01:01 by Radha Flores DO) Invasive lobular carcinoma of left breast in female HER2-positive carcinoma of left breast GERD (gastroesophageal reflux disease) Mixed hyperlipidemia Elevated blood sugar MVP (mitral valve prolapse) Squamous cell skin cancer, face (~2013) Surgical History Surgical History (Updated 03/01/25 @ 23:30 by Radha Flores DO) Rectal fistula (~2007) Repaired History of hysterectomy (~1990) Status post left foot surgery Removal of calcification Family History Family History Father Hypertension Family history of lung cancer Mother Family history of malignant neoplasm of breast in first degree relative Social History Social History (Updated 03/02/25 @ 01:11 by Radha Flores DO) Social History: The patient has been since 2014. She did not have any biologic children but has step children in stepped grand children. 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 She lives alone is is independent in all activities of daily living. She is a lifelong nonsmoker and does not drink alcohol or use illicit substances. Code status: DNR/DNI (her DNR has been suspended due to surgical procedure) Healthcare power of patent prosecution attorney: Julieta Frye (sister) Smoking status: Never smoker Second hand tobacco smoke exposure: No Alcohol intake: current Drinks per week: 2 Alcohol use details: Occasional Substance use: never Substance use type: does not use Do You Feel Safe in your Home?: Yes Lack of Transportation: No Lack of Food: Never True Current Housing: Decline to Answer Concerned About Future Housing: Decline to Answer Difficulty Paying Gas/Electric Bills: Decline to Answer Difficulty Paying for Meds: Decline to Answer Currently Unemployed: Decline to Answer Education: Decline to Answer Difficulty w/ Childcare or Family Care: Decline to Answer Living arrangements: with family Gender identity (if verbalized by the patient): Female Spiritual care concerns: No Same Day Admit/Disch: Med Pre-admit Medications Home Medications ?Medication ?Instructions ?Recorded ?Confirmed ?Type omeprazole 20 mg capsule,delayed 20 mg PO DAILY 08/20/20 03/01/25 History release loratadine 10 mg tablet (Claritin) 10 mg PO DAILY PRN Allergy Symptoms 02/14/22 03/01/25 History cephalexin 500 mg capsule 500 mg PO Q12H #14 caps 03/01/25 Rx hydrocodone 5 mg-acetaminophen 325 1 tablet PO Q6H PRN pain #16 tabs 03/01/25 R x mg tablet Review of Systems Review of Systems All systems reviewed & are unremarkable except as noted in HPI and below DS: Data Data Completed and Pending Pending studies at discharge: Pending at discharge 03/01/25 09:17 Surgical [PTH] Routine Surgical [PTH] Routine Surgical [PTH] Routine Surgical [PTH] Routine Surgical [PTH] Routine Surgical [PTH] Routine DS: Summary Hospital Course Reason for hospitalization: Admitted for overnight observation after surgery. patient had some initial mildly elevated blood pressure which was well controlled with p.r.n. hydralazine. Her pain is well controlled on p.o. pain meds, she is tolerating a regular diet and voiding without any issues. Patient has ambulated with no assistant restaurant general manager. She was deemed ready for discharge on postop day 1. Status at Discharge Functional status at discharge: independent ambulation Overall status at discharge: patient is back to baseline Time Spent with Patient Time attestation: Total time spent providing and/or coordinating discharge services: Time spent: Less than 30 minutes DS: Admitting Diagnosis Discharge Date 03/02/2025 Admitting Diagnosis 1. Left breast invasive lobular carcinoma 2. Elevated blood pressure DS: Discharge Diagnosis Discharge Diagnosis (1) Invasive lobular carcinoma of left breast in female: Code(s): C50.912 - Malignant neoplasm of unspecified site of left female breast Status: Acute (2) Elevated blood pressure reading without diagnosis of hypertension: Code(s): R03.0 - Elevated blood-pressure reading, without diagnosis of hypertension Status: Acute (3) Mixed hyperlipidemia: Code(s): E78.2 - Mixed hyperlipidemia Status: Acute (4) HER2-positive carcinoma of left breast: Code(s): C50.912 - Malignant neoplasm of unspecified site of left female breast; Z17.31 - Human epidermal growth factor receptor 2 positive status Status: Acute Plan Patient will see Plastic surgery 1 week for drain management. She will see me with breast surgery in 2 weeks for follow-up visit and postoperative management. Patient was encouraged to see her primary care physician in the next 2-3 weeks for a blood pressure check and further management. Discharge Plan Discharge Patient Disposition: Home Discharge Instructions: Post-Operative Instructions Mastectomy and Breast Reconstruction Dressing Instructions: Keep bra and surgical dressings clean, dry, and in place at all times. Shower Instructions: Keep surgical dressings, incisions, and drains, dry at all times. You may shower or sponge bathe from waist down. May sponge bathe underarms and upper extremities. Activity: Avoid strenuous activity and heavy lifting/pushing/pulling until seen in office for follow up appointment. Avoid overhead arm movements. Walking is encouraged to help with bowel movement as well as help prevent blood clots in the lower extremities. Deep breathing exercises are encouraged to help prevent lung infections. Drain Care: Keep drains on suction at all times. Strip drain tubing at least every 12 hours. Empty drains every 12 hours and record output separately for each side. Please bring output record to your first follow up visit in office. Medication: May take Advil or Tylenol for pain. May take prescription pain medication as prescribed if not controlled by Advil/Tylenol. Prescription pain medication may cause constipation. Take antibiotics as prescribed. Follow up: Please follow up in office with Plastic Surgery in 3-5 days, and Breast Surgery in 2 weeks. Please call the office for any questions or concerns, including uncontrolled pain, fever/chills, bleeding, redness, or unexpected changes in sensation. If after normal business hours, please request the hospital drill press operator numerical control page the surgeon or PA. For emergent symptoms, please call 911 or seek assistance at the nearest Emergency Room. Patient Language: Japanese Follow-up/Referrals: Barbara Givens MD [Primary Care Provider] - (in 2 weeks for blood pressure check and management) Susan Mann MD [Physician] - (in 2 weeks) Discharge Medications: New hydrocodone-acetaminophen 5-325 mg tablet 1 tablet PO Q6H PRN (Reason: pain) Qty: 16 0RF cephalexin 500 mg capsule 500 mg PO Q12H Qty: 14 0RF Continued omeprazole 20 mg capsule,delayed release(DR/EC) 20 mg PO DAILY loratadine [Claritin] 10 mg Tablet 10 mg PO DAILY PRN (Reason: Allergy Symptoms)
[2025-03-02] MEDS: DOCUSATE SODIUM 100 MG CAPSULE PO (09:13)
[2025-03-02] MEDS: CEPHALEXIN 500 MG CAPSULE PO (09:13)
[2025-03-02] MEDS: PANTOPRAZOLE 40 MG TABLET PO (09:14)
[2025-03-02] MEDS: HYDROcodone/acetaminophen (*CRX) 5-325 MG TABLET 1 TAB PO (10:56)
--- NOTE | 2025-03-02 13:05 | P.PNIM_ITS ---
Subjective Date/time seen: 03/02/25 13:05 Interval history: patient was discharged by her surgeon before I can see her. Objective Data Vital Signs Vital Signs: Vital Signs - 24 hr 03/01/25 13:10 03/01/25 13:20 03/01/25 13:35 Temperature 36.1 C L Pulse Rate 63 74 Respiratory Rate 14 14 Blood Pressure 137/72 123/74 Pulse Oximetry 95 94 Oxygen Delivery Room Air Room Air Room Air 03/01/25 14:00 03/01/25 16:00 03/01/25 16:45 Temperature 36.6 C 37.4 C Pulse Rate 74 101 H Respiratory Rate 18 18 Blood Pressure 153/85 H 166/69 H Pulse Oximetry 96 96 Oxygen Delivery Room Air 03/01/25 17:30 03/01/25 19:00 03/01/25 20:37 Temperature 36.9 C Pulse Rate 89 77 Respiratory Rate 18 18 Blood Pressure 175/70 H 169/80 H 171/69 H Pulse Oximetry 97 Oxygen Delivery 03/01/25 21:00 03/02/25 00:30 03/02/25 04:50 Temperature 37.3 C 37.1 C Pulse Rate 91 96 79 Respiratory Rate 18 18 Blood Pressure 157/71 H 139/64 169/71 H Pulse Oximetry 97 98 Oxygen Delivery 03/02/25 05:35 03/02/25 07:20 03/02/25 07:45 Temperature 36.8 C Pulse Rate 90 96 Respiratory Rate 18 Blood Pressure 133/54 L 122/64 Pulse Oximetry 96 Oxygen Delivery Room Air Intake/Output Intake/Output: Intake & Output 02/27/25 02/28/25 03/01/25 03/02/25 23:59 23:59 23:59 23:59 Intake Total 490 1550 Output Total 1284 3241 Balance -766 -5749 Meds/Results Radiology Results: ITS Impressions [place] Node 03/01/25 07:57 IMPRESSION: 1: Status post left breast sentinel lymph node radiopharmaceutical injection. Chest X-Ray 03/01/25 13:13 IMPRESSION: Right internal jugular central venous port catheter identified in excellent position and ready for immediate use. Mild pulmonary vascular congestion with indeterminate density in the left lung base, likely related to patient's intervention rather than intrinsic lung disease.
== END 2025-03-02 11:40 | disposition home or self-care (01) ==
LOC: ANHSURGERY 06:04 → ANHOB2 03-02 06:42
PROVIDERS: Plastic Surgery; PCP Family Medicine; Visit Provider Surgery
PROC: (CPT 19340; principal; 2025-03-01 07:30)
PROC: (CPT 19340; 2025-03-01 07:30)
PROC: (CPT 15777; 2025-03-01 07:30)
DX: C50.412 Malignant neoplasm of upper-outer quadrant of left female breast (principal); R59.0 Localized enlarged lymph nodes; N60.21 Fibroadenosis of right breast; N60.22 Fibroadenosis of left breast; N60.11 Diffuse cystic mastopathy of right breast; N60.12 Diffuse cystic mastopathy of left breast; Z17.31 Human epidermal growth factor receptor 2 positive status; E78.2 Mixed hyperlipidemia; R03.0 Elevated blood-pressure reading, without diagnosis of hypertension; K21.9 Gastro-esophageal reflux disease without esophagitis; Z98.890 Other specified postprocedural states; R33.9 Retention of urine, unspecified; Z79.891 Long term (current) use of opiate analgesic; Z85.3 Personal history of malignant neoplasm of breast; Z85.828 Personal history of other malignant neoplasm of skin; Z87.19 Personal history of other diseases of the digestive system; Z86.79 Personal history of other diseases of the circulatory system; Z80.1 Family history of malignant neoplasm of trachea, bronchus and lung; Z80.3 Family history of malignant neoplasm of breast
CPT/HCPCS: 19340; 15777 ×2; 14001 ×2; 19303; 38525; 36561; 38900; 36415; 38792; 77001; 85025; 85610; 85730; 88305; 88307; 88360; 88365; 93005; 99199; A9270; A9520; C1789; J0330; J0360; J0665; J0690; J1100; J1580; J1644; J2004; J2405; J2704; J3010; J7030; J7120; Q4116; Q9968

== ENCOUNTER 2025-05-09 12:25 | Outpatient (CLI) | payer MEDICARE, SELFPAY ==
[2025-05-09 13:12] LABS: Basophils Percent Auto 0.4 % (0.2-1.2); Eosinophils Absolute Auto 0.1 K/mm3 (0-0.3); Eosinophils Percent Auto 1.2 % (0-4.4); Hematocrit 43.7 % (37.0-47.0); Hemoglobin 14.5 g/dL (12.0-15.0); Immature Granulocyte Absolute 0.02 K/mm3 (0.00-0.031); Immature Granulocyte Percent A 0.2 % (0-0.5); Lymphocytes Absolute Auto 1.72 K/mm3 (0.9-3.2); Lymphocytes Percent Auto 20.8 % (18.3-44.2); Mean Corpuscular HGB Conc 33.2 g/dl (32-36); Mean Corpuscular Hemoglobin 30.4 pg (26-34); Mean Corpuscular Volume 91.6 fl (80-100); Mean Platelet Volume 9.9 fl (7.4-10.4); Monocytes Absolute Auto 0.6 K/mm3 (0.1-0.6); Monocytes Percent Auto 7.6 % (2.6-8.5); Neutrophils Absolute Auto 5.8 K/mm3 (1.3-6.7); Neutrophils Percent Auto 69.8 % (45.5-73.1); Platelet Count Result 245 k/mm3 (150-375); Red Blood Count 4.77 M/mm3 (4.2-5.4); Red Cell Distribution Width 12.8 % (11.5-14.5); White Blood Count 8.3 K/mm3 (4.5-10.0)
[2025-05-09 13:17] LABS: Blood Urea Nitrogen 17 mg/dL (8-26); Carbon Dioxide 23 mmol/L (22-30); Chloride 105 mmol/L (98-109); Estimated Glomerular Filt Rate > 60; Glucose 90 mg/dL (70-105); Ionized Calcium (POC) 1.17 mmol/L (1.11-1.31); Potassium 4.3 mmol/L (3.5-4.9); Sodium 140 mmol/L (138-146)
[2025-05-09 16:32] LABS: Alanine Aminotransferase 20 U/L (6-35); Albumin Level 4.2 g/dL (3.5-5.1); Alkaline Phosphatase 99 U/L (38-126); Anion Gap 7 mmol/L (4-12); Aspartate Amino Transferase 32 U/L (14-36); Bilirubin,Total 0.3 mg/dL (0.2-1.3); Blood Urea Nitrogen 17 mg/dL (7-17); Calcium 9.3 mg/dL (8.4-10.2); Carbon Dioxide 24 mmol/L (22-30); Chloride 107 mmol/L (98-107); Estimated Glomerular Filt Rate > 60; Glucose 90 mg/dL (65-110); Potassium 4.4 mmol/L (3.4-5.0); Sodium 138 mmol/L (137-145); Total Protein 7.3 g/dL (6.3-8.2)
== END 2025-05-09 12:26 | disposition home or self-care (01) ==
LOC: ANHLAB 12:26
PROVIDERS: PCP Family Medicine; Visit Provider Internal Medicine Hematology & Oncology
DX: C50.412 Malignant neoplasm of upper-outer quadrant of left female breast (principal); Z17.0 Estrogen receptor positive status [ER+]
CPT/HCPCS: 36415; 80047; 80053; 85025

== ENCOUNTER 2025-05-31 01:40 | Day surgery (SDC) | payer MEDICARE, SELFPAY ==
[2025-05-25 12:21] VITALS: BMI 29.4
--- NOTE | 2025-05-25 12:40 | PC.NURSE ---
Report to the Outpatient Waiting Room, entrance under the green pavilion located off [facility], at time ___8:00AM____ on date ___05/31/25____. Planned Procedure Time: ___10:00AM .? Time changes happen often and if your time is changed the preop area will call you the afternoon before. - You and your visitor will be asked to self-screen and do not enter if you have any COVID symptoms. Please call surgeon if you need to reschedule. - A mask is optional within the hospital at this time. Patients may have clear liquids (water, carbonated beverages, clear teas, apple juice) until 3 hours prior to surgery (7:00AM) with a maximum of 20 ounces. - No food from midnight until time of surgery and no smoking, or chewing tobacco (or any form of nicotine). No chewing gum, candy or mints. Take only the following medications with a SIP of water on the morning of surgery: NONE DO NOT STOP ANY OF YOUR OTHER PRESCRIPTION MEDICATIONS PRIOR TO SURGERY EXCEPT THE FOLLOWING Hold all vitamins and supplements for 3 days per anesthesiologist. Medications to discontinue per physician NONE Date to take last dose Please no make-up, nail estonian, hairspray, perfume, deodorant, or body powder the day of surgery.? No jewelry (including any body piercings) or valuables the day of surgery, leave them at home.? Please take a shower or bath the night before, or the morning of, surgery with an antibacterial soap.? Wear comfortable, loose fitting clothing.? - Jewelry must be removed prior to entering the operating room.? Rings and piercings that are not removed may be cut off. - The hospital will not accept responsibility for valuables.? - Please leave all valuables, including medications, at home the day of surgery. If you are going home after surgery, a licensed independent driver must drive you home.? - NO public transportation without another adult if you receive anesthesia. - We recommend that an adult stay with you for 24 hours following discharge. - We also recommend that you do not drive, make important decision, drink alcoholic beverages, or take any drugs that were not prescribed by your health care provider for at least 24 hours after your discharge time. Follow any additional instructions given to you from your surgeon. Telephone instructions given to ____PATIENT and asked if any additional questions and then verbalized understanding. Patient advised to call surgeon office or pre surgery nurse liaison [phone] if any additional questions.
--- OUTSIDE RECORDS SUMMARY | 2025-05-31 01:44 | XMS_ITS | Clinical Summary ---
Author Organization [facility] Address [address] [place] [id number] Care Team Providers Care Take Away Man Name Role Phone Que Sanders MD Primary Care Provider [phone] Family History Medical History Relation Comments Breast Cancer Mother Relation Status Comments Mother Social History Tobacco Use Types Packs/Day Years Used Date Smoking Tobacco: Never Assessed Comments Unknown Sex and Gender Information Value Date Recorded Sex Assigned at Female 12/02/2024 11:30 AM SENIOR TECHNICAL BUSINESS ANALYST Legal Sex Female 7:53 PM CDT Gender [...] JARET LT DIGI Routine 12/16/2024 3:41 PM SENIOR TECHNICAL BUSINESS ANALYST Abnormal mammogram BONE DENSITY/DEXA Routine 10/11/2024 1:1 9 PM SENIOR TECHNICAL BUSINESS ANALYST Asymptomatic menopausal state from Last 3 Months or Most Recently Relevant to Health Maintenance Results * MG DIAG W JARET LT DIGI (12/16/2024 3:41 PM SENIOR TECHNICAL BUSINESS ANALYST) Anatomical Region Laterality Modality Breast Left Mammography, Rad iographic Imaging 12/16/2024 3:13 PM SENIOR TECHNICAL BUSINESS ANALYST Impressions 12/16/2024 3:16 PM SENIOR TECHNICAL BUSINESS ANALYST ===== IMPRESSION: ===== 1. Biopsy of left breast lesion. Assessment: ACR BI-RADS 4 - SUSPICIOUS FINDING(S) - BIOPSY SHOULD BE CONSIDERED Recommendation: 1:Biopsy should be considered Left Comments: Findings discussed with the patient following completion of exam. Ordered By: QUE SANDERS Interpreted By: Darrell Lawson, 12/16/2024 3:13 PM Narrative 12/16/2024 3:16 PM SENIOR TECHNICAL BUSINESS ANALYST [facility] [address] [place] [address] EXAMINATION: Digital left diagnostic mammogram with 3-D tomography. Left breast ultrasound [id number] EXAM DATE/TIME: 12/16/2024 1:58 PM REASON FOR [...] Que Sanders MD MAMMO Final Result * BONE DENSITY/DEXA (10/11/2024 1:19 PM SENIOR TECHNICAL BUSINESS ANALYST) Anatomical Region Laterality Modality Bone Bone Density 10/12/2024 5:42 AM SENIOR TECHNICAL BUSINESS ANALYST Impressions 10/12/2024 5:43 AM SENIOR TECHNICAL BUSINESS ANALYST IMPRESSION: WHO Classification: Normal RECOMMENDATIONS: All patients [...] 10/12/2024 5:42 AM Narrative 10/12/2024 5:43 AM SENIOR [place] [address] EXAMINATION: BONE DENSITY/DEXA INDICATIONS: Asymptomatic menopausal state [...] Procedure Note Jacob Mchugh MD - 10/12/2024 [facility] [address] [place] [address] EXAMINATION: BONE DENSITY/DEXA INDICATIONS: Asymptomatic menopausal state [...] to Health Maintenance Insurance [employer] Care Teams Take Away Man Relationship Specialty Start Date End Date Que Sanders MD [address] [place] [address] PCP - General FAMILY PRACTICE 08/05/24
--- OUTSIDE RECORDS SUMMARY | 2025-05-31 01:44 | XMS_ITS | Clinical Summary ---
Author Organization [facility] Address [address] [place] [address] Care Team Providers Care Pharmacy Resident Name Role Phone Barbara Givens MD Primary Care Provider [phone] Allergies No known active allergies Medications omeprazole magnesium (PRILOSEC ORAL) Take by mouth. Active loratadine (CLARITIN ORAL) Take by mouth. Active anastrozole (ARIMIDEX) 1 mg tablet Take 1 Tablet (1 mg) by mouth daily. 60 Tablet 3 03/28/2025 Active Active Problems No known active problems Encounters Date Type Department Care Team Description 05/10/2025 Orders Only [facility] Oncology and Hematology [facility] [address] [place] [address] Guerrero Hutson MD 05/09/2025 1:00 PM CDT Office Visit [facility] Oncology and Hematology [facility] [address] [place] [address] Guerrero Hutson MD Malignant neoplasm of upper-outer quadrant of left breast in female, estrogen receptor positive (CMS/HCC) (Primary Dx) 05/09/2025 Orders Only [facility] Oncology and Hematology [facility] [address] [place] [address] Guerrero Hutson MD 04/05/2025 External Device Data STL ABSTRACTION Provider, Abstract 04/04/2025 External Device Data STL ABSTRACTION Provider, Abstract 03/28/2025 Telephone [facility] Oncology and Hematology [facility] [address] [place] [address] Guerrero Hutson MD follow up questions 03/28/2025 Orders Only [facility] Oncology and Hematology - [address] [place] [address] Guerrero Hutson MD 03/24/2025 Abstract [facility] Oncology and Hematology - [address] [place] [address] Guerrero Hutson MD 03/23/2025 10:00 AM CDT Office Visit [facility] Oncology and Hematology - [address] [place] [address] Guerrero Hutson MD Malignant neoplasm of upper-outer quadrant of left breast in female, estrogen receptor positive (CMS/HCC) (Primary Dx) 03/15/2025 Orders Only [facility] Oncology and Hematology - [address] [place] [address] Guerrero Hutson MD from Last 3 Months Family History Medical [...] Sign Reading Time Taken Comments Blood Pressure 167/97 05/09/2025 1:17 PM CDT Pulse 69 05/09/2025 1:14 PM CDT Temperature 37 C (98.6 F) 05/09/2025 1:14 PM CDT Respiratory Rate 15 05/09/2025 1:14 PM CDT Oxygen Saturation 97% 05/09/2025 1:14 PM CDT Inhaled Oxygen Concentration - - Weight 72.6 kg (160 lb) 05/09/2025 1:14 PM CDT Height 157.5 cm (5' 2) 02/08/2025 8:42 AM CDT Body Mass Index 29.26 02/08/2025 8:42 AM CDT Plan of Treatment Upcoming Encounters Date Type Department Care Team (Late st Contact Info) Description 09/08/2025 10:30 AM CDT Office Visit [facility] Oncology and Hematology - [address] [facility] [address] [place] [address] Guerrero Hutson MD [address] [facility] [address] [place] [address] Health Maintenance Due Date Last [...] (1 of 2) 2006 INFLUENZA VACCINE (#1) 2025 BREAST CANCER SCREENING 12/16/2025 12/16/19 25, 12/16/2024, 10/11/2024 OSTEOPOROSIS SCREENING 10/11/2029 10/11/2024, 2023 RSV VACCINE (60+ or ) (1 - 1-dose 75+ series) 2031 Procedures Procedure Name Priority Date/Time Associated Diagnosis Comments CBC WITH DIFFERENTIAL Routine 05/09/2025 5:32 PM CDT BASIC METABOLIC PANEL Routine 05/09/2025 5:28 PM CDT COMPREHENSIVE METABOLIC PANEL Routine 05/09/2025 11:19 AM CDT from Last 3 Months Results * CBC WITH DIFFERENTIAL (05/09/2025 5:32 PM CDT) Blood us Guerrero Hutson MD HEMATOLOGY ORDERABLES Final Res ult * BASIC METABOLIC PANEL (05/09/2025 5:28 PM CDT) Blood Guerrero Hutson MD CHEMISTRY ORDERABLES Final Resu lt * COMPREHENSIVE METABOLIC PANEL (05/09/2025 11:19 AM CDT) Blood Guerrero Htuson MD CHEMISTRY ORDERABLES Final Resu lt from Last 3 Months Insurance AET[employer] PPO [facility] Care Teams Pharmacy Resident Relationship Specialty Start Date End Date Barbara Givens MD [address] [place] [phone] PCP - General Family Practice 05/09/25
--- OUTSIDE RECORDS SUMMARY | 2025-05-31 01:44 | XMS_ITS | Clinical Summary ---
Author Organization [facility] Address [address] [place] [address] Care Team Providers Care Community Living Coach Name Role Phone Unknown, Notinfile Primary Care Provider Unavail able Allergies No known active allergies Medications anastrozole (ARIMIDEX) 1 mg tablet Take 1 tablet (1 mg total) by mouth daily 2025 Active Active Problems No known active problems Encounters Date Type Department Care Team Description 04/10/2025 11:15 AM CDT Office Visit [facility] at [address] [address] Jennifer Leon NP Tick bite of back, initial encounter (Primary Dx) from Last 3 Months Social History Tobacco Use Types Packs/Day Years Used Date Smoking Tobacco: Never Assessed Comments Unknown Sex and Gender Information Value Date Recorded Sex Assigned at Not on file Legal Sex Female 10:56 AM CDT Gender Identity Not on file Sexual Orientation Not on file Last Filed Vital Signs Vital Sign Reading Time Taken Comments Blood Pressure 154/87 04/10/2025 11:12 AM CDT Pulse 86 04/10/2025 11:12 AM CDT Temperature 36.4 C (97.6 F) 04/10/2025 11:12 AM CDT Respiratory Rate 20 04/10/2025 11:12 AM CDT Oxygen Saturation 99% 04/10/2025 11:12 AM CDT Inhaled Oxygen Concentration - - Weight 72.6 kg (160 lb) 04/10/2025 11:12 AM CDT Height - - Body Mass Index - - Plan of Treatment Health Maintenance Due Date Last Done Comments Breast Cancer Screening-Mammogram 1956 Colon Cancer Screening-Colonoscopy 1956 Depression Screening 1956 Fall Risk Assessment 1956 Hepatitis C Screening 1956 Osteoporosis Screening-Bone Density Scan 1956 DTaP/Tdap/Td Vaccine (1 - Tdap) 1967 Hepatitis B Screening 1974 Pneumococcal vaccine 65+ (1 of 2 - PCV) 1975 Zoster Vaccine (1 of 2) 1975 Well Visit 65+ 2021 Influenza Vaccine (Season Ended) 2025 Procedures Procedure Name Priority Date/Time Associated Diagnosis Comments FOREIGN BODY REMOVAL - EMBEDDED Routine 04/10/2025 11:44 AM CDT Tick bite of back, initial encounter from Last 3 Months Results * Foreign Body Removal (04/10/2025 11:44 AM CDT) Narrative Paxton Daily MD - 04/10/2025 11:44 AM CDT Paxton Daily MD 04/14/2025 6:53 AM Foreign Body Removal Date/Time: 04/10/2025 11:44 AM Performed by: Jennifer Leon NP Authorized by: Jennifer Leon NP Consent: Consent obtained: Verbal Consent given by: Patient Risks discussed: Pain, worsening of condition and incomplete removal Location: Location: Shoulder Shoulder location: L shoulder Tendon involvement: None Pre-procedure details: Neurovascular status: intact Anesthesia: Anesthesia method: None Procedure type: Procedure complexity: Simple Procedure details: Bloodless field: yes Removal mechanism: Hemostat Foreign bodies recovered: 1 Description: One small tick Intact foreign body removal: yes Post-procedure details: Neurovascular status: intact Confirmation: No additional foreign bodies on visualization Skin closure: None Dressing: Antibiotic ointment and adhesive bandage Procedure completion: Tolerated Jennifer Leon NP IN CLINIC/BEDSIDE ORDERABL ES Final Result from Last 3 Months Insurance AETNA MEDICARE Care Teams Community Living Coach Relationship Specialty Start Date End Date Unknown, Notinfile PCP - General 04/10/25
--- OUTSIDE RECORDS SUMMARY | 2025-05-31 01:44 | XMS_ITS | Clinical Summary ---
Author Organization [facility] Address [address] [place] [address] Care Team Providers Care Winder Contort Operator Name Role Phone Barbara Givens MD Primary Care Provider Source Comments [facility],non-owned Affiliates and Associated Physician Practices is amultiple site organization consisting of ambulatory clinics and hospital sitesin [place], [place], [place] and [place]. This disclosure is being madepursuant to the Care Everywhere program and may not contain all information available regarding this patient. Last updated 18.[facility] Medications * Be aware that medications may [...] on file Legal Sex Female 6:17 PM LANDMEN Gender Identity Not on file Sexual Orientation [...] 7:28 AM CDT Height 157.5 cm (5' 2) 02/13/2015 7:28 AM CDT Body Mass Index [...] MEDICARE AWV CALENDAR YEAR 2024 INFLUENZA VACCINE (#1) 2025 Respiratory Syncytial Virus (RSV) Vaccine Pt: [...] KAHN Subscriber ID:Not on file (Home) Address: [address] [place] [phone] Payer ID:Not on file Group ID:Not on file Type:Self Pay Address: [place], [place] Care Teams Winder Contort Operator Relationship Specialty Start Date End Date Barbara Givens MD [address] [place], [place] [id number] PCP - General 01/25/19
--- OUTSIDE RECORDS SUMMARY | 2025-05-31 01:44 | XMS_ITS | Referral Summary ---
Author Organization [facility] [place] Address [address] [place] [phone] Care Team Providers Care Oil Developer Name Role Phone Unknown, Notinfile Primary Care Provider Unavail able Encounters Date Type Department Care Team Description 04/10/2025 11:15 AM CDT Office Visit [facility] at [address] [address] Jennifer Leon NP Tick bite of back, initial encounter (Primary Dx) from Last 3 Months Allergies No known active allergies Medications anastrozole (ARIMIDEX) 1 mg tablet Take 1 tablet (1 mg total) by mouth daily 2025 Active Active Problems No known active problems Social History Tobacco Use Types Packs/Day Years [...] Mass Index - - Plan of Treatment Not on file Procedures Procedure Name Priority Date/Time Associated Diagnosis [...] adhesive bandage Procedure completion: Tolerated Jennifer Leon DATA CENTER PROJECT MANAGER IN CLINIC/BEDSIDE ORDERABL ES Final Result from Last 3 Months Insurance [facility] MEDICARE Care Teams Oil Developer Relationship Specialty Start Date End Date Unknown, Notinfile PCP - General 04/10/25
--- OUTSIDE RECORDS SUMMARY | 2025-05-31 01:44 | XMS_ITS | Clinical Summary ---
Author Organization [facility] Care Team Providers Care Broom Stitcher Name Role Phone Unavailable Primary Care Provider Unavailabl e Social History Tobacco Use Types Packs/Day Years Used Date Smoking Tobacco: Never Assessed Comments Unknown Sex and Gender Information Value Date Recorded Sex Assigned at Not on file Legal Sex Female 11:12 AM LOAD DISPATCHER Gender Identity Not on file Sexual Orientation [...]
[2025-05-31 08:29] VITALS: BP 167/70; PULSE 69; RESP 18; TEMP 36.8; O2SAT 99
--- NOTE | 2025-05-31 09:46 | WPDHPUPDATE1 ---
History and Physical Update Update Date/Time: 05/31/25 09:46 - MediPort removal History and Physical has been reviewed, including an updated exam of the patient. There are NO changes in the patient's condition. Risks, benefits, and alternatives have been discussed and questions answered. Patient agrees to proceed with procedure.
--- NOTE | 2025-05-31 09:54 | P.PNAN_ITS ---
Anes - Initial Pre Proc Eval Procedure: Operation Date: 05/31/25 10:00 Proposed Procedures p Mediport Removal - Susan Mann MD Date/Time: 05/31/25 09:54 Surgeon: Susan Mann MD Pre Op Diagnosis: malignant neoplasm of left female breast Patient Data Age: 70 Gender: F Height: 1.57 m Weight: 72.9 kg Last Vital Signs Temp 98.2 F 05/31/25 08:29 Pulse 69 05/31/25 08:29 Resp 18 05/31/25 08:29 BP 167/70 H 05/31/25 08:29 Pulse Ox 99 05/31/25 08:29 O2 Del Method Room Air 05/31/25 08:29 Allergies Allergy/AdvReac Type Severity Reaction Status Date / Time No Known Allergies Allergy Verified 05/31/25 08:35 Home Medications ?Medication ?Instructions ?Recorded ?Confirmed ?Type omeprazole 20 mg capsule,delayed 20 mg PO DAILY 08/20/20 05/31/25 History release loratadine 10 mg tablet (Claritin) 10 mg PO DAILY PRN Allergy Symptoms 02/14/22 05/31/25 History anastrozole 1 mg tablet 1 mg PO DAILY 04/17/25 05/31/25 History Patient hx anesthesia problems: none Family hx anesthesia problems: none Results Review: All pre-operative results and documents have been reviewed as part of the pre-op erative evaluation. 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 She did not have any biologic children but has step children in stepped grand children. 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 She lives alone is is independent in all activities of daily living. She is a lifelong nonsmoker and does not drink alcohol or use illicit substances. Code status: DNR/DNI (her DNR has been suspended due to surgical procedure) Healthcare power of civil attorney: Julieta Frye (sister) Smoking status: Never smoker Second hand tobacco smoke exposure: No Alcohol intake: current Drinks per week: 2 Alcohol use details: Occasional Substance use: never Substance use type: does not use Do You Feel Safe in your Home?: Yes Lack of Transportation: No Lack of Food: Never True Current Housing: Decline to Answer Concerned About Future Housing: Decline to Answer Difficulty Paying Gas/Electric Bills: Decline to Answer Difficulty Paying for Meds: Decline to Answer Currently Unemployed: Decline to Answer Education: Decline to Answer Difficulty w/ Childcare or Family Care: Decline to Answer Living arrangements: with family Gender identity (if verbalized by the patient): Female Spiritual care concerns: No Anes - Eval Final PreProcedure Day of Procedure 05/31/25 09:54 Patient weight: overweight Lungs: normal air movement Neurological: alert and oriented Last oral intake: >/= 8 hours ASA classification: II Emergent: no Anesthetic plan: proceed Anesthesia type and monitoring: general GIVS and standard monitoring Results Review: All pre-operative results and documents have been reviewed as part of the pre- operative evaluation. Hx of breast cancer, now without need for chemo per pt. Pt for port removal. Informed Consent: The patient's anesthetic plan and its attendant risks and benefits were discussed with the patient/family/POA. Questions were solicited and answers provided to the satisfaction of the patient/family/POA.
[2025-05-31] MEDS: ceFAZolin 2 GM in SODIUM CHLORIDE 0.9% IV 50 ML 100 ML IVPB (10:16)
[2025-05-31] MEDS: BUPIVACAINE/EPINEPHRINE 0.5% 30 ML VIAL 10 ML INFILTRATE (10:38)
--- NOTE | 2025-05-31 10:51 | P.OP_ITS ---
Procedure Note - Detailed Date of Procedure 05/31/25 Pre-op Diagnosis malignant neoplasm of left female breast Post-op Diagnosis Same Procedure Performed Mediport removal Surgeon Susan Mann MD Anesthesia MAC Description of Procedure Patient was identified in the preoperative holding area brought to the operating room suite. She was laid supine in the OR table sequential compression devices were applied. Anesthesia was induced without difficulty. The right neck and upper chest area were prepped and draped in a sterile fashion. Local anesthetic was infiltrated around the previous MediPort incision site and a 15 blade was used to access the port through the previous incision. Dissection was carried down through the subcutaneous tissue and the port was easily identified. The securing sutures on both sides of the port were cut and removed and the port was externalized. A U-stitch was placed around the catheter exit site at the skin and the stitch was cinched down as the catheter was slowly withdrawn from the neck while applying pressure to the insertion site at the internal jugular area. Pressure was held for about 10 minutes with excellent hemostasis. Since the port was fairly new there was not a significant capsule around the cavity site and this was slightly singed with Bovie electrocautery. Hemostasis was assured. The deep dermal layer was then closed with interrupted 3-0 Vicryl and the skin was then closed with 4-0 Monocryl in a subcuticular fashion followed by Dermabo nd for the skin. Patient was awoken from anesthesia and taken to the recovery area in stable condition. All needles, instruments, and sponge counts were correct as reported by the operating room staff. Patient tolerated the procedure well with no immediate complications. Estimated Blood Loss 2 Pathology None sent Complications No immediate complications Condition Stable Disposition PACU [facility] Billing Surgery - Charge Forward: Surgery Billing (CPT 79552)
[2025-05-31 10:55] VITALS: BP 164/72; PULSE 68; RESP 20
[2025-05-31 11:25] VITALS: BP 158/70; PULSE 70; RESP 20
[2025-05-31 11:50] VITALS: BP 145/72; PULSE 75; RESP 20
== END 2025-05-31 11:55 | disposition home or self-care (01) ==
PROVIDERS: PCP Family Medicine; Visit Provider Surgery
PROC: (CPT 36589; principal; 2025-05-31 10:00)
DX: Z45.2 Encounter for adjustment and management of vascular access device (principal); Z85.3 Personal history of malignant neoplasm of breast
CPT/HCPCS: 36590; J0690; J2003; J2250; J2704; J3010

== ENCOUNTER 2025-08-31 11:13 | Outpatient (CLI) | payer MEDICARE, SELFPAY ==
[2025-08-31 11:25] LABS: Hematocrit 41.8 % (37.0-47.0); Hemoglobin 13.8 g/dL (12.0-15.0); Immature Granulocyte Percent A 0.3 % (0-0.5); Lymphocytes Absolute Auto 1.65 K/mm3 (0.9-3.2); Mean Corpuscular HGB Conc 33.0 g/dl (32-36); Mean Corpuscular Hemoglobin 30.4 pg (26-34); Mean Corpuscular Volume 92.1 fl (80-100); Nucleated Red Blood Cells Absolute Auto 0.000 K/mm3 (0.0-0.012); Nucleated Red Blood Cells Perc 0.0 % (0.0-0.2); Platelet Count Result 244 k/mm3 (150-375); Red Blood Count 4.54 M/mm3 (4.2-5.4); White Blood Count 7.1 K/mm3 (4.5-10.0)
[2025-08-31 12:34] LABS: Alanine Aminotransferase 19 U/L (6-35); Albumin Level 4.3 g/dL (3.5-5.1); Alkaline Phosphatase 96 U/L (38-126); Anion Gap 6 mmol/L (4-12); Aspartate Amino Transferase 25 U/L (14-36); Bilirubin,Total 0.6 mg/dL (0.2-1.3); Blood Urea Nitrogen 16 mg/dL (7-17); Calcium 8.9 mg/dL (8.4-10.2); Carbon Dioxide 28 mmol/L (22-30); Chloride 105 mmol/L (98-107); Estimated Glomerular Filt Rate > 60; Glucose 96 mg/dL (65-110); Potassium 4.1 mmol/L (3.4-5.0); Sodium 139 mmol/L (137-145); Total Protein 7.2 g/dL (6.3-8.2)
--- OUTSIDE RECORDS SUMMARY | 2025-08-31 13:16 | XMS_ITS | Clinical Summary ---
Author Organization [facility] Address [address] [place] [address] Care Team Providers Care Property Management Specialist Name Role Phone Barbara Givens MD Primary Care Provider [phone] Source Comments [facility],non-owned Affiliates and Associated Physician Practices is amultiple site organization consisting of ambulatory clinics and hospital sitesin [place], [place], [place] and [place]. This disclosure is being madepursuant to the Care Everywhere program and may not contain all information available regarding this patient. Last updated 18.[facility] Medications * Be aware that medications may [...] on file Legal Sex Female 6:17 PM IMAGING SCIENCE PROFESSOR Gender Identity Not on file Sexual Orientation [...] 2006 ZOSTER VACCINE (1 of 2) 2006 DEPRESSION SCREENING 11/16/2024 MEDICARE AWV CALENDAR YEAR 2024 COVID-19 VACCINE (1 - 2023-2 5 season) 2025 INFLUENZA VACCINE (#1) 2025 Respiratory Syncytial Virus [...] KAHN Subscriber ID:Not on file (Home) Address: [address] [place] [phone] Payer ID:Not on file Group ID:Not on file Type:Self Pay Address: [place], [place] Care Teams Property Management Specialist Relationship Specialty Start Date End Date Barbara Givens MD [address] [place], [place] [id number] PCP - General 01/25/19
--- OUTSIDE RECORDS SUMMARY | 2025-08-31 13:16 | XMS_ITS | Clinical Summary ---
[facility] Address [address] [place] [address] Care Team Providers Care Heel Dipper Name Role Phone Barbara Givens MD Primary Care Provider [phone] Allergies No known active allergies Medications omeprazole magnesium (PRILOSEC ORAL) Take by mouth. Active loratadine (CLARITIN ORAL) Take by mouth. Active anastrozole (ARIMIDEX) 1 mg tablet Take 1 Tablet (1 mg) by mouth daily. 60 Tablet 3 03/28/2025 Active anastrozole (ARIMIDEX) 1 mg tablet take as directed 60 Tablet 07/27/2025 Active Active Problems No known active problems Encounters Date Type Department Care Team Description 08/01/2025 External Device Data [facility] ABSTRACTION Provider, Abstract 07/25/2025 External Device Data [facility] ABSTRACTION Provider, Abstract 06/21/2025 External Device Data [facility] ABSTRACTION Provider, Abstract 06/20/2025 External Device Data [facility] ABSTRACTION Provider, Abstract 05/31/2025 External Device Data [facility] ABSTRACTION Provider, Abstract 05/31/2025 External Device Data ST[facility] ABSTRACTION Provider, Abstract from Last 3 Months Family History Medical [...] Description 09/08/2025 10:30 AM CDT Office Visit [facility] On[facility] H[facility] [address] [facility] [address] [place] [address] Guerrero Hutson MD [address] [place] [address] Health Maintenance Due Date Last Done Comments Pre-Diabetes and Diabetes Screening 1955 DTAP/TDAP/TD VACCINES (1 - Tdap) 1975 COLORECTAL SCREENING 2001 Colorectal Cancer Screening 2001 FIT-DNA Q 3 years 2001 FIT/FOBT Q 1 year 2001 Flex Sig/CT Colonography Q 5 years 2001 PNEUMOCOCCAL VACCINE 50+ YEA RS (1 of 1 - PCV) 2006 ZOSTER VACCINE (1 of 2) 2006 Medicare Advantage ([place]) Prev entative Visit/Annual Wellness Visit 11/16/2024 INFLUENZA VACCINE (#1) 2025 BREAST CANCER SCREENING 12/16/2025 12/16/19 25, 12/16/2024, 10/11/2024 OSTEOPOROSIS SCREENING 10/11/2029 10/11/2024, 2023 RSV VACCINE (60+ or ) (1 - 1-dose 75+ series) 2031 Insurance AETNA PPO MCR RX AETNA Medicare Part D RX [employer] (INTERNAL) [facility] Care Teams Heel Dipper Relationship Specialty Start Date End Date Barbara Givens MD [address] [place] [address] PCP - General Family Practice 05/09/25
--- OUTSIDE RECORDS SUMMARY | 2025-08-31 13:16 | XMS_ITS | Clinical Summary ---
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 Gender Identity Not on file Sexual Orientation Not on file Plan of Treatment Health Maintenance Due Date Last Done Comments Hepatitis C Virus (HCV) Screening 1955 TdaP Immunization 1955 Cologuard 2001 Colonoscopy 2001 Colorectal Cancer Screening 2001 Immunochemical Fecal Occult Blood 2001 Pneumococcal Immunization (5 0+ years) (1 of 1 - PCV) 2006 Zoster Immunization (1 of 2) 2006 Influenza Immunization (#1) 2025 SARS-COV-2 Immunization (2 - season) 2025 09/20/2021 Respiratory Syncytial Virus (RSV) Immunization (Adult) (1 - 1-dose 75+ series) 2031 Hepatitis B Immunization Aged Out No longer eligible based on patient's age to complete this topic Human Papillomavirus (HPV) Immunization Aged Out No longer eligible b ased on patient's age to complete this topic Meningococcal Immunization (ACWY) Aged Out No longer eligible based on patient's age to complete this topic Rotavirus Immunization Aged Out No lo nger eligible based on patient's age to complete this topic
--- OUTSIDE RECORDS SUMMARY | 2025-08-31 13:16 | XMS_ITS | Clinical Summary ---
Author Organization [facility] Address [facility] [place] [address] Care Team Providers Care Dehydrogenation Operator Head Name Role Phone Unknown, Notinfile Primary Care [...] 1975 Well Visit 65+ 2021 Influenza Vaccine (#1) 2025 Insurance AETNA MEDICARE Care Teams Dehydrogenation Operator Head Relationship Specialty Start Date End Date Unknown, Notinfile PCP - General 04/10/25
== END 2025-08-31 11:14 | disposition home or self-care (01) ==
LOC: ANHLAB 11:14
PROVIDERS: PCP Family Medicine; Visit Provider Internal Medicine Hematology & Oncology
DX: C50.412 Malignant neoplasm of upper-outer quadrant of left female breast (principal); Z17.0 Estrogen receptor positive status [ER+]
CPT/HCPCS: 36415; 80053; 85025; 86300

== ENCOUNTER 2025-09-06 02:49 | Day surgery (SDC) | payer MEDICARE, SELFPAY ==
[2025-09-05 10:41] VITALS: BMI 29.0
--- NOTE | 2025-09-05 10:46 | PC.NURSE ---
[facility] has started construction of its new state of the art ER which will open Spring 2026. With this, we anticipate parking may be a challenge for some our surgical patients and families. Parking spaces are limited but are available for all Surgical, obstetrics, and ER patients sharing this lot. If you arrive and find you are having a hard time finding a parking space, please note that we understand the challenges, please drive around the hospital and park near Hospital Entrance 1. When you enter this entrance, you can ask a volunteer to direct or take you back to the surgical waiting area to check in. We appreciate everyone?s understanding of these expected challenges while we build for your future. Report to the Outpatient Waiting Room, entrance under the green pavilion located off [address], at time __11:00am on date _09/06/25 . Planned Procedure Time: _1:00pm .? Time changes happen often and if your time is changed the preop area will call you the afternoon before. - You and your visitor will be asked to self-screen and do not enter if you have any COVID symptoms. Please call surgeon if you need to reschedule. - A mask is optional within the hospital at this time. - No food or drink from midnight until time of surgery and no smoking, or chewing tobacco (or any form of nicotine). No chewing gum, candy or mints. Take only the following medications with a SIP of water on the morning of surgery: NONE DO NOT STOP ANY OF YOUR OTHER PRESCRIPTION MEDICATIONS PRIOR TO SURGERY EXCEPT THE FOLLOWING Hold all vitamins and supplements for 3 days per anesthesiologist. Medications to discontinue per physician NONE Date to take last dose__NONE Please no make-up, nail pashto, hairspray, perfume, deodorant, or body powder the day of surgery.? No jewelry (including any body piercings) or valuables the day of surgery, leave them at home.? Please take a shower or bath the night before, or the morning of, surgery with an antibacterial soap.? Wear comfortable, loose fitting clothing.? - Jewelry must be removed prior to entering the operating room.? Rings and piercings that are not removed may be cut off. - The hospital will not accept responsibility for valuables.? - Please leave all valuables, including medications, at home the day of surgery. If you are going home after surgery, a licensed guard driver must drive you home.? - NO public transportation without another adult if you receive anesthesia. - We recommend that an adult stay with you for 24 hours following discharge. - We also recommend that you do not drive, make important decision, drink alcoholic beverages, or take any drugs that were not prescribed by your health care provider for at least 24 hours after your discharge time. Follow any additional instructions given to you from your surgeon. Telephone instructions given to ___Patient and asked if any additional questions and then verbalized understanding. Patient advised to call surgeon office or pre surgery nurse liaison [phone] if any additional questions.
--- NOTE | 2025-09-06 07:04 | WPDHPUPDATE1 ---
History and Physical Update Update Date/Time: 09/06/25 07:04 Patient seen and examined in pre-operative holding area. No interval change in medical history or symptoms. Patient remembers previous discussion of benefits and alternatives to procedure. Continues to desire to proceed with b/l breast recon revision . I reviewed the risks including but not limited to bleeding ,infection, asymmetry, undesireable cosmetic appearance, partial/total skin loss, no change or worsening of symptoms, change in sensation, implant complicaitons, capsular contracture. I discussed the possible use of assistants and their level of participation in the case. Patient stated understanding and signed the consent form wishing to proceed
--- NOTE | 2025-09-06 07:05 | W.PM.PROC2 ---
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 Patient was taken back to the operating room and placed on the table in the supine position. Time-out was performed with Anesthesia, surgeon, and staff agreeing on patient's name, sites, and surgery to be performed. SCDs were placed on lower extremities inflated. Antibiotics were given IV. After general anesthesia was administered the breasts were prepped and draped in the usual sterile fashion. I proceeded with injecting 20 cc of 1% lidocaine with epinephrine and 0.5% Marcaine plain around the operative sites. Took my attention 1st to the right breast where I proceeded making an elliptical incision over the symptomatic tissue through skin and dermis with 15 blade scalpel. Bovie cautery was used to elevate skin flaps and proceed with further dissection and resection of excess subcutaneous tissue. This dissection was carried down close to the right breast reconstruction implant capsule but the capsule was not violated during this procedure. After resection was completed I irrigated with normal saline. 3-0 Vicryl was used for deep and dermal closure. 4-0 Monocryl was used for subcuticular closure. There is improved contour to the lateral sweep of the reconstructed breast and reduction in bulk of lateral trunk tissue. Length of closure measured 12 cm Next I took my attention to the left breast where the same procedure was performed. I proceeded with making an elliptical incision over the symptomatic tissue through skin and dermis with 15 blade scalpel. Bovie cautery was used to elevate skin flaps and proceed with further dissection and resection of excess subcutaneous tissue. This dissection was carried down close to the left breast just before reaching implant capsule but the capsule was not violated during this procedure. After resection was completed I irrigated with normal saline. 3-0 Vicryl was used for deep and dermal closure. 4-0 Monocryl was used for subcuticular closure. There is improved contour to the lateral sweep of the reconstructed breast and reduction in bulk of lateral trunk tissue. Length of closure measured 11 cm A dressing of Mastisol, Steri-Strips, 4 x 4 and Tegaderm was then applied followed by ABDs and a surgery bra. The patient was awakened from anesthesia and transferred to the recovery room in stable condition. Complications: None Estimated blood loss: 5 cc Disposition: patient tolerated the procedure well and will go home later today Ave Malave PA-C was essential for positioning, retraction, closure and dressing placement. [facility] Billing Surgery - Charge Forward: Surgery Billing ([id number] )
[2025-09-06 10:25] VITALS: BMI 28.5
[2025-09-06] MEDS: LACTATED RINGERS 1,000 ML 30 ML IV CONT (10:45)
[2025-09-06] MEDS: ACETAMINOPHEN 500 MG TABLET 1000 MG PO (10:51)
[2025-09-06 11:00] VITALS: BP 148/75; PULSE 75; RESP 16; TEMP 37; O2SAT 100
--- NOTE | 2025-09-06 12:08 | WPDANESEPPF ---
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 She did not have any biologic children but has step children in stepped grand children. 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 She lives alone is is independent in all activities of daily living. She is a lifelong nonsmoker and does not drink alcohol or use illicit substances. Code status: DNR/DNI (her DNR has been suspended due to surgical procedure) Healthcare power of traffic law attorney: Julieta Frye (sister) Caffeine-coffee Smoking status: Never smoker Second hand tobacco smoke exposure: No Alcohol intake: current Drinks per week: 2 Alcohol use details: Occasional Substance use: never Substance use type: does not use Do You Feel Safe in your Home?: Yes Lack of Transportation: No Lack of Food: Never True Current Housing: Decline to Answer Concerned About Future Housing: No Difficulty Paying Gas/Electric Bills: No Difficulty Paying for Meds: No Currently Unemployed: No Education: Master's Degree or Higher Difficulty w/ Childcare or Family Care: No Living arrangements: with family Gender identity (if verbalized by the patient): Female Spiritual care concerns: No Anes - Eval Final PreProcedure Day of Procedure 09/06/25 12:08 Patient weight: normal Lungs: normal air movement Airway: Mallampati scale class II Neurological: alert and oriented Last oral intake: >/= 8 hours ASA classification: II Emergent: no Anesthetic plan: proceed Anesthesia type and monitoring: general LMA and standard monitoring Results Review: All pre-operative results and documents have been reviewed as part of the pre-operative evaluation. Hx of breast cancer, active w pickleball, no cp or sob. Informed Consent: The patient's anesthetic plan and its attendant risks and benefits were discussed with the patient/family/POA. Questions were solicited and answers provided to the satisfaction of the patient/family/POA.
[2025-09-06] MEDS: ceFAZolin 2 GM in SODIUM CHLORIDE 0.9% IV 50 ML 100 ML IVPB (12:24)
[2025-09-06] MEDS: LIDO 1%/EPINEPHRINE 1:100,000 50 ML VIAL (12:39)
--- NOTE | 2025-09-06 12:42 | S_PTH ---
PATIENT: Milly De Luna LOC: [facility] U#:[id number] AGE/SX: 70/F ROOM: RE09/06/[address]: Ann Suazo MD : 1955 BED: DIS: 09/06/2025 SPEC #: [id number] RECD: 09/06/25 12:47 STATUS: LALO REAnkit #: [id number] [place]: 09/06/25 12:[address]: Ann Suazo DEPT: [facility] Surgical RECD BY: Rasheed Santizo ENTERED: 09/06/25 12:48 SP TYPE: Surgical OTHR DR: Barbara GivensMD Tissues: A - Breast Tissue B - Breast Tissue Procedures: Hematoxylin and Eosin Stain Gross and Microscopic Level 4
[2025-09-06 13:15] VITALS: BP 146/67; PULSE 77; RESP 16; O2SAT 100
[2025-09-06] MEDS: fentaNYL CITRATE INJ (*CRX) 100 MCG/2 ML VIAL 25 MCG IV PUSH ×2 (13:22→13:25)
[2025-09-06 13:45] VITALS: BP 148/74; PULSE 62; RESP 16; O2SAT 96
[2025-09-06] MEDS: oxyCODONE HCL (*CRX) 5 MG TAB IR PO (13:58)
[2025-09-06 14:15] VITALS: BP 149/78; PULSE 65; RESP 16
[2025-09-06 14:30] VITALS: BP 143/62; PULSE 66; RESP 16
== END 2025-09-06 14:42 | disposition home or self-care (01) ==
PROVIDERS: PCP Family Medicine; Visit Provider Plastic Surgery
PROC: (CPT 19380; principal; 2025-09-06 13:00)
DX: N64.89 Other specified disorders of breast (principal); K21.9 Gastro-esophageal reflux disease without esophagitis; E78.2 Mixed hyperlipidemia; Z79.891 Long term (current) use of opiate analgesic; Z98.890 Other specified postprocedural states; Z90.13 Acquired absence of bilateral breasts and nipples; Z85.3 Personal history of malignant neoplasm of breast; Z85.828 Personal history of other malignant neoplasm of skin; Z86.79 Personal history of other diseases of the circulatory system; Z80.3 Family history of malignant neoplasm of breast; Z80.1 Family history of malignant neoplasm of trachea, bronchus and lung
CPT/HCPCS: 19380; 88305; J0690; A9270; J2003; J2004; J2704; J3010; J7120